=== PATIENT | male | born 1960 | race Caucasian/White ===

== ENCOUNTER 2017-02-21 20:40 | Inpatient (IN) | payer MEDICARE, OTHER ==
[~2017-02-21] VITALS: Ht 182.9 cm; Wt 77.1 kg
[2017-02-21 21:16] LABS: BASO % 1 % (0-3); EOS % 5 % (0-3); HEMOGLOBIN 10.3 g/dL (13.0-17.5); LYMPH # 0.8 x10^3/uL (1.0-4.8); LYMPH % 17 % (24-48); MEAN CORPUSCULAR HEMOGLOBIN 30 pg (25-35); MEAN CORPUSCULAR HGB CONC 33 g/dL (31-37); MEAN CORPUSCULAR VOLUME 89 fL (79-100); MONO % 13 % (0-9); NEUT % 64 % (31-73); PLATELET COUNT 177 x10^3/uL (140-400); RED BLOOD COUNT 3.47 x10^6/uL (4.30-5.70); RED CELL DISTRIBUTION WIDTH 13.3 % (11.5-14.5); WHITE BLOOD COUNT 4.5 x10^3/uL (4.0-11.0)
[2017-02-21 21:20] LABS: BILIRUBIN,URINE NEGATIVE (NEG); GLUCOSE,URINE NEGATIVE (NEG); NITRITE,URINE NEGATIVE (NEG); PROTEIN,URINE NEGATIVE (NEG-TRACE)
[2017-02-21 21:28] LABS: CALCIUM 8.9 mg/dL (8.5-10.1); CREATININE 0.8 mg/dL (0.7-1.3); GFR 99.3; POTASSIUM 3.9 mmol/L (3.5-5.1)
[2017-02-21 21:32] LABS: BACTERIA,URINE FEW /HPF (0-FEW); WBC,URINE 20-40 /HPF (0-4)
[2017-02-21 21:33] LABS: SQUAMOUS EPITHELIAL CELL,UR MANY /LPF; YEAST,URINE PRESENT /HPF
[2017-02-21 21:34] LABS: ALBUMIN 3.7 g/dL (3.4-5.0); TOTAL BILIRUBIN 0.4 mg/dL (0.2-1.0); TOTAL PROTEIN 7.5 g/dL (6.4-8.2)
[2017-02-21] MEDS ORDERED: PIP/TAZO PER PHARMACY MC PRN (23:15)
[2017-02-21] MEDS ORDERED: IV NORMAL SALINE 1000ML BAG 1,000 ML IV ONE (23:45)
[2017-02-21] MEDS ORDERED: PIPERACILLIN/TAZOBACTAM 3.375 GM in IV NORMAL SALINE 50ML 50 ML IV ONE (23:45)
[2017-02-22] MEDS ORDERED: VANCOMYCIN 2 GM in IV NORMAL SALINE 500ML BAG 500 ML IV ONE ×2
[2017-02-22] MEDS: IV NORMAL SALINE 1000ML BAG 1,000 ML IV SCH ×3 (00:25→20:25)
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
[2017-02-22] MEDS ORDERED: MORPHINE SULFATE 2 MG/ML DISP.SYRIN. IV PRN (00:30)
[2017-02-22] MEDS ORDERED: ONDANSETRON PF 4 MG/2 ML VIAL. IV PRN ×2 (00:30→12:24)
[2017-02-22] MEDS ORDERED: ACETAMINOPHEN 325 MG TABLET. PO PRN (00:30)
[2017-02-22 02:50] VITALS: BP 93/55
[2017-02-22] MEDS: VANCOMYCIN PER PHARMACY MC PRN ×2 (02:56→14:56)
[2017-02-22] MEDS ORDERED: CYAN10005 PO (03:00)
[2017-02-22] MEDS ORDERED: CHOL10007 PO (03:00)
[2017-02-22] MEDS ORDERED: IOHEXOL 300 MG/ML 75 ML VIAL IV ONE (03:00)
[2017-02-22] MEDS ORDERED: METF500T4 PO (03:00)
[2017-02-22] MEDS ORDERED: PRAV80TA2 PO (03:00)
[2017-02-22] MEDS ORDERED: VITA400C36 PO (03:00)
[2017-02-22] MEDS ORDERED: ASCO500C PO (03:00)
[2017-02-22] MEDS ORDERED: SULF1TAB3 PO (03:00)
[2017-02-22] MEDS ORDERED: SILV400C TP (03:00)
[2017-02-22] MEDS ORDERED: CONTRAST GIVEN MC PRN (03:00)
[2017-02-22] MEDS ORDERED: FENO160T PO (03:00)
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
[2017-02-22] MEDS: PIPERACILLIN/TAZOBACTAM 3.375 GM in IV NORMAL SALINE 50ML 50 ML IV SCH ×3 (05:29→17:51)
[2017-02-22 07:00] VITALS: BP 94/49
--- NOTE | 2017-02-22 08:35 | RAD ---
Portable chest, 02/21/2017: History: Cough and fever Comparison is made to a study from 12/09/2012. The heart size and pulmonary vascularity are normal. No pulmonary infiltrates are seen. No pleural fluid is evident, although the right lateral costophrenic angle was not completely included on this exam. Old right-sided rib fractures are noted. IMPRESSION: No acute cardiopulmonary abnormality is detected.
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
[2017-02-22 11:00] VITALS: BP 86/47
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
[2017-02-22] MEDS: CHOLECALCIFEROL (VITAMIN D3) 1,000 UNIT TABLET PO SCH (13:00)
[2017-02-22] MEDS: VITAMIN E 200 UNIT CAPSULE. PO SCH (13:00)
[2017-02-22] MEDS: ASCORBIC ACID 500 MG TABLET PO SCH (13:00)
[2017-02-22] MEDS ORDERED: BISACODYL 10 MG SUPP.RECT. PR ONE (13:00)
[2017-02-22] MEDS: CYANOCOBALAMIN (VITAMIN B-12) 1,000 MCG TABLET. PO SCH (13:00)
[2017-02-22] MEDS: FENOFIBRATE,MICRONIZED 134 MG CAPSULE PO SCH (13:00)
[2017-02-22] MEDS: FLUCONAZOLE 100 MG TABLET. PO SCH (14:00)
[2017-02-22] MEDS: silver sulfADIAZINE 1% CREAM 25GM TUBE. TP SCH ×2 (14:00→19:14)
--- NOTE | 2017-02-22 14:07 | PDOC ---
Infectious Disease Note ROS ROS GEN: Denies fevers, chills, sweats HEENT: Denies blurred vision, sore throat CV: Denies chest pain RESP: Denies shortness of air, cough GI: Denies n/v/d NEURO: Denies confusion, dizziness MSK: Denies weakness, joint pain/swelling Vital Sign Vital Signs Vital Signs Date Time Temp Pulse Resp B/P Pulse Ox O2 Delivery O2 Flow Rate FiO2 02/22/17 11:00 98.1 66 18 86/47 93 Room Air 98.1 Physical Exam PHYSICAL EXAM GENERAL: NAD, Alert HEENT: PERRL, OC/OP NECK: Supple, no JVD, no LN LUNGS: Clear HEART: S1S2, no gallop, no murmur ABD: Soft, NT, no organomegaly, no rebound EXT: No edema, no cyanosis [employer]: Alert, oriented x 3, no focal neurologic deficit SKIN: No rash IV: ok Labs Lab Laboratory Tests Test 02/21/17 20:50 02/21/17 20:55 Urine Collection Type Unknown Urine Color Yellow Urine Clarity Hazy Urine pH 6.0 Urine Specific [place] 1.020 Urine Protein Negativemg/dL (NEG-TRACE) Urine Glucose (UA) Negativemg/dL (NEG) Urine Ketones (Stick) Negativemg/dL (NEG) Urine Blood Trace (NEG) Urine Nitrite Negative (NEG) Urine Bilirubin Negative (NEG) Urine Urobilinogen Dipstick 4.0mg/dL (0.2 mg/dL) Urine Leukocyte Esterase Large (NEG) Urine RBC 1-2/HPF (0-2) Urine WBC 20-40/HPF (0-4) Urine Squamous Epithelial Cells Many/LPF Urine Bacteria Few/HPF (0-FEW) Urine Mucus Marked/LPF Urine Yeast Present/HPF White Blood Count 4.5x10^3/uL (4.0-11.0) Red Blood Count 3.47x10^6/uL (4.30-5.70) Hemoglobin 10.3g/dL (13.0-17.5) Hematocrit 31.0% (39.0-53.0) Mean Corpuscular Volume 89fL (79-100) Mean Corpuscular Hemoglobin 30pg (25-35) Mean Corpuscular Hemoglobin Concent 33g/dL (31-37) Red Cell Distribution Width 13.3% (11.5-14.5) Platelet Count 177x10^3/uL (140-400) Neutrophils (%) (Auto) 64% (31-73) Lymphocytes (%) (Auto) 17% (24-48) Monocytes (%) (Auto) 13% (0-9) Eosinophils (%) (Auto) 5% (0-3) Basophils (%) (Auto) 1% (0-3) Neutrophils # (Auto) 2.9x10^3uL (1.8-7.7) Lymphocytes # (Auto) 0.8x10^3/uL (1.0-4.8) Monocytes # (Auto) 0.6x10^3/uL (0.0-1.1) Eosinophils # (Auto) 0.2x10^3/uL (0.0-0.7) Basophils # (Auto) 0.0x10^3/uL (0.0-0.2) Sodium Level 136mmol/L (136-145) Potassium Level 3.9mmol/L (3.5-5.1) Chloride Level 99mmol/L (98-107) Carbon Dioxide Level 26mmol/L (21-32) Anion Gap 11 (6-14) Blood Urea Nitrogen 16mg/dL (8-26) Creatinine 0.8mg/dL (0.7-1.3) Estimated GFR (Cockcroft-Gault) 99.3 BUN/Creatinine Ratio 20 (6-20) Glucose Level 103mg/dL (70-99) Lactic Acid Level 1.6mmol/L (0.4-2.0) Calcium Level 8.9mg/dL (8.5-10.1) Total Bilirubin 0.4mg/dL (0.2-1.0) Aspartate Amino Transf (AST/SGOT) 18U/L (15-37) Alanine Aminotransferase (ALT/SGPT) 17U/L (16-63) Alkaline Phosphatase 61U/L (46-116) Total Protein 7.5g/dL (6.4-8.2) Albumin 3.7g/dL (3.4-5.0) Albumin/Globulin Ratio 1.0 (1.0-1.7) Objective Assessment Fever at home Draining left hip wound Right 2 nd toe wound UTI - POA yeast also Plan Plan of Care Cult left hip wound F/u Urine cults MRI left hip Xray of right foot for 2 nd toe Cont Vanc/zosyn Add Fluconzole Change fortune in am May need Ortho eval Thank you # [id number] LOREE TELLEZ MD Feb 22, 2017 14:07
[2017-02-22] MEDS: ENOXAPARIN 40 MG/0.4 ML SYRINGE. SQ SCH (14:13)
--- NOTE | 2017-02-22 14:54 | PDOC2 ---
CONSULT Date of Consult Date of Consult DATE: 02/22/17 TIME: 14:52 Reason for Consult Reason for Consult: Constipation/quadriplegia/abnl Ct scan Past Medical History Cardiovascular: Hyperlipidemia Infectious disease: Other (uti's) Past Surgical History Past Surgical History: Other (suprapubic cath ) Family History Family History: No Significant Social History No ALCOHOL: none Drugs: None Current Problem List Problem List Problems Medical Problems: (1) Fever Status: Acute (2) Paraplegia Status: Acute (3) Wound drainage Status: Acute Current Medications Current Medications Current Medications Sodium Chloride (Iv Sodium Chloride 0.9% 1000ml Bag) 1,000 ml @ 1,000 mls/hr 1X ONCE IV Last administered on 02/21/17 23:44; Start 02/21/17 at 23:45; Stop 02/22/17 at 00:44; Status DC Vancomycin HCl (Vanco Per Pharmacy) 1 each PRN DAILY PRN MC SEE COMMENTS Last administered on 02/22/17 02:56; Start 02/21/17 at 23:15 Piperacillin Sod/ Tazobactam Sod 1 each 1 each PRN DAILY PRN MC SEE COMMENTS; Start 02/21/17 at 23:15 Vancomycin HCl 2 gm/Sodium Chloride 500 ml @ 250 mls/hr 1X ONCE IV Last administered on 02/22/17 01:25; Start 02/22/17 at 00:00; Stop 02/22/17 at 01:59 ; Status DC Piperacillin Sod/ Tazobactam Sod/ Sodium Chloride (Zosyn/Iv Sodium Chloride 0.9 % 50ml) 50 ml @ 100 mls/hr 1X ONCE IV Last administered on 02/21/17 23:45; Start 02/21/17 at 23:45; Stop 02/22/17 at 00:14; Status DC Ondansetron HCl (Zofran) 4 mg PRN Q8HRS PRN IV NAUSEA/VOMITING; Start 02/22/17 at 00:30; Stop 02/22/17 at 12:33; Status DC Morphine Sulfate 2 mg 2 mg PRN Q2HR PRN IV SEVERE PAIN; Start 02/22/17 at 00:30 ; Stop 02/23/17 at 00:29 Sodium Chloride (Iv Sodium Chloride 0.9% 1000ml Bag) 1,000 ml @ 100 mls/hr Q10H IV Last administered on 02/22/17 00:25; Start 02/22/17 at 00:25; Stop at 00:24 Acetaminophen 650 mg 650 mg PRN Q4HRS PRN PO FEVER; Start 02/22/17 at 00:30; Stop 02/23/17 at 00:29 Piperacillin Sod/ Tazobactam Sod 3.375 gm/Sodium Chloride 50 ml @ 100 mls/hr Q6HRS IV Last administered on 02/22/17 14:01; Start 02/22/17 at 06:00 Vancomycin HCl/ Sodium Chloride (Iv Sodium Chloride 0.9% 250ml) 250 ml @ 250 mls/hr Q8H IV ; Start 02/22/17 at 09:00 Vancomycin HCl 1 each 1X ONCE MC ; Start 02/23/17 at 00:30; Stop 02/23/17 at 00 :31 Iohexol (Omnipaque 300 Mg/ml) 75 ml 1X ONCE IV Last administered on 02/22/17 03:07; Start 02/22/17 at 03:00; Stop 02/22/17 at 03:01; Status DC Info (Do NOT chart on this entry -- for MONITORING) 1 each PRN DAILY PRN MC SEE COMMENTS; Start 02/22/17 at 03:00; Stop 02/24/17 at 02:59 Ondansetron HCl (Zofran) 4 mg PRN Q6HRS PRN IV NAUSEA/VOMITING; Start 02/22/17 at 12:24 Cyanocobalamin (Vitamin B-12) 1,000 mcg DAILY PO ; Start 02/22/17 at 13:00 Metformin HCl (Glucophage) 500 mg BIDWMEALS PO ; Start 02/24/17 at 08:00 Silver Sulfadiazine (Silvadene) 1 lydia TID TP ; Start 02/22/17 at 14:00 Ascorbic Acid (Vitamin C) 500 mg DAILY PO ; Start 02/22/17 at 13:00 Vitamin D (Vitamin D3) 1,000 unit DAILY PO ; Start 02/22/17 at 13:00 Fenofibrate (Lofibra) 134 mg DAILY PO ; Start 02/22/17 at 13:00 Atorvastatin Calcium (Lipitor) 20 mg QHS PO ; Start 02/22/17 at 21:00 Vitamin E 400 unit DAILY PO ; Start 02/22/17 at 13:00 Bisacodyl (Dulcolax Supp) 10 mg 1X ONCE DC Last administered on 02/22/17 14: 14; Start 02/22/17 at 13:00; Stop 02/22/17 at 13:01; Status DC Enoxaparin Sodium (Lovenox 40mg Syringe) 40 mg Q24H SQ Last administered on t 14:13; Start 02/22/17 at 13:00 Fluconazole (Diflucan) 200 mg DAILY PO ; Start 02/22/17 at 14:00 Active Scripts Active Reported Vitamin E (Vitamin E Mixed) 400 Unit Capsule 400 Unit PO DAILY Vitamin D3 (Cholecalciferol (Vitamin D3)) 1,000 Unit Capsule 1,000 Unit PO DAILY Vitamin B-12 (Cyanocobalamin (Vitamin B-12)) 1,000 Mcg Tablet 1 Tab PO DAILY Vitamin C (Ascorbic Acid) 500 Mg Capsule.er 500 Mg PO DAILY Sulfamethoxazole-Tmp Ds Tablet (Sulfamethoxazole/Trimethoprim) 1 Each Tablet 1 Tab PO DAILY Silver Sulfadiazine 400 Gm Cream..g. 1 Lydia TP TID Fenofibrate 160 Mg Tablet 160 Mg PO DAILY Pravastatin Sodium 80 Mg Tablet 80 Mg PO DAILY Metformin Hcl 500 Mg Tablet 500 Mg PO BID Allergies Allergies: Coded Allergies: pentoxifylline (Verified Allergy, Intermediate, 02/21/17) Vitals VITALS Vital Signs Date Time Temp Pulse Resp B/P Pulse Ox O2 Delivery O2 Flow Rate FiO2 02/22/17 11:00 98.1 66 18 86/47 93 Room Air 98.1 Labs Labs Laboratory Tests Test 02/21/17 20:50 02/21/17 20:55 Urine Collection Type Unknown Urine Color Yellow Urine Clarity Hazy Urine pH 6.0 Urine Specific [place] 1.020 Urine Protein Negativemg/dL (NEG-TRACE) Urine Glucose (UA) Negativemg/dL (NEG) Urine Ketones (Stick) Negativemg/dL (NEG) Urine Blood Trace (NEG) Urine Nitrite Negative (NEG) Urine Bilirubin Negative (NEG) Urine Urobilinogen Dipstick 4.0mg/dL (0.2 mg/dL) Urine Leukocyte Esterase Large (NEG) Urine RBC 1-2/HPF (0-2) Urine WBC 20-40/HPF (0-4) Urine Squamous Epithelial Cells Many/LPF Urine Bacteria Few/HPF (0-FEW) Urine Mucus Marked/LPF Urine Yeast Present/HPF White Blood Count 4.5x10^3/uL (4.0-11.0) Red Blood Count 3.47x10^6/uL (4.30-5.70) Hemoglobin 10.3g/dL (13.0-17.5) Hematocrit 31.0% (39.0-53.0) Mean Corpuscular Volume 89fL (79-100) Mean Corpuscular Hemoglobin 30pg (25-35) Mean Corpuscular Hemoglobin Concent 33g/dL (31-37) Red Cell Distribution Width 13.3% (11.5-14.5) Platelet Count 177x10^3/uL (140-400) Neutrophils (%) (Auto) 64% (31-73) Lymphocytes (%) (Auto) 17% (24-48) Monocytes (%) (Auto) 13% (0-9) Eosinophils (%) (Auto) 5% (0-3) Basophils (%) (Auto) 1% (0-3) Neutrophils # (Auto) 2.9x10^3uL (1.8-7.7) Lymphocytes # (Auto) 0.8x10^3/uL (1.0-4.8) Monocytes # (Auto) 0.6x10^3/uL (0.0-1.1) Eosinophils # (Auto) 0.2x10^3/uL (0.0-0.7) Basophils # (Auto) 0.0x10^3/uL (0.0-0.2) Sodium Level 136mmol/L (136-145) Potassium Level 3.9mmol/L (3.5-5.1) Chloride Level 99mmol/L (98-107) Carbon Dioxide Level 26mmol/L (21-32) Anion Gap 11 (6-14) Blood Urea Nitrogen 16mg/dL (8-26) Creatinine 0.8mg/dL (0.7-1.3) Estimated GFR (Cockcroft-Gault) 99.3 BUN/Creatinine Ratio 20 (6-20) Glucose Level 103mg/dL (70-99) Lactic Acid Level 1.6mmol/L (0.4-2.0) Calcium Level 8.9mg/dL (8.5-10.1) Total Bilirubin 0.4mg/dL (0.2-1.0) Aspartate Amino Transf (AST/SGOT) 18U/L (15-37) Alanine Aminotransferase (ALT/SGPT) 17U/L (16-63) Alkaline Phosphatase 61U/L (46-116) Total Protein 7.5g/dL (6.4-8.2) Albumin 3.7g/dL (3.4-5.0) Albumin/Globulin Ratio 1.0 (1.0-1.7) Laboratory Tests Test 02/21/17 20:50 02/21/17 20:55 Urine Collection Type Unknown Urine Color Yellow Urine Clarity Hazy Urine pH 6.0 Urine Specific [place] 1.020 Urine Protein Negativemg/dL (NEG-TRACE) Urine Glucose (UA) Negativemg/dL (NEG) Urine Ketones (Stick) Negativemg/dL (NEG) Urine Blood Trace (NEG) Urine Nitrite Negative (NEG) Urine Bilirubin Negative (NEG) Urine Urobilinogen Dipstick 4.0mg/dL (0.2 mg/dL) Urine Leukocyte Esterase Large (NEG) Urine RBC 1-2/HPF (0-2) Urine WBC 20-40/HPF (0-4) Urine Squamous Epithelial Cells Many/LPF Urine Bacteria Few/HPF (0-FEW) Urine Mucus Marked/LPF Urine Yeast Present/HPF White Blood Count 4.5x10^3/uL (4.0-11.0) Red Blood Count 3.47x10^6/uL (4.30-5.70) Hemoglobin 10.3g/dL (13.0-17.5) Hematocrit 31.0% (39.0-53.0) Mean Corpuscular Volume 89fL (79-100) Mean Corpuscular Hemoglobin 30pg (25-35) Mean Corpuscular Hemoglobin Concent 33g/dL (31-37) Red Cell Distribution Width 13.3% (11.5-14.5) Platelet Count 177x10^3/uL (140-400) Neutrophils (%) (Auto) 64% (31-73) Lymphocytes (%) (Auto) 17% (24-48) Monocytes (%) (Auto) 13% (0-9) Eosinophils (%) (Auto) 5% (0-3) Basophils (%) (Auto) 1% (0-3) Neutrophils # (Auto) 2.9x10^3uL (1.8-7.7) Lymphocytes # (Auto) 0.8x10^3/uL (1.0-4.8) Monocytes # (Auto) 0.6x10^3/uL (0.0-1.1) Eosinophils # (Auto) 0.2x10^3/uL (0.0-0.7) Basophils # (Auto) 0.0x10^3/uL (0.0-0.2) Sodium Level 136mmol/L (136-145) Potassium Level 3.9mmol/L (3.5-5.1) Chloride Level 99mmol/L (98-107) Carbon Dioxide Level 26mmol/L (21-32) Anion Gap 11 (6-14) Blood Urea Nitrogen 16mg/dL (8-26) Creatinine 0.8mg/dL (0.7-1.3) Estimated GFR (Cockcroft-Gault) 99.3 BUN/Creatinine Ratio 20 (6-20) Glucose Level 103mg/dL (70-99) Lactic Acid Level 1.6mmol/L (0.4-2.0) Calcium Level 8.9mg/dL (8.5-10.1) Total Bilirubin 0.4mg/dL (0.2-1.0) Aspartate Amino Transf (AST/SGOT) 18U/L (15-37) Alanine Aminotransferase (ALT/SGPT) 17U/L (16-63) Alkaline Phosphatase 61U/L (46-116) Total Protein 7.5g/dL (6.4-8.2) Albumin 3.7g/dL (3.4-5.0) Albumin/Globulin Ratio 1.0 (1.0-1.7) Assessment/Plan Assessment/Plan Constipation- with neurologic dysfunction/bowel regimen/Abnl ct scan. Most likely multifactorial in etiology. Diverticular stricture, ischemic colitis, IBD , colon cancer, and/or image artifat in differential Plan await MRI hip r/o osteomyelitis patient to consider colonoscopy Full note dictated BRITTANIE LEW MD Feb 22, 2017 14:54
[2017-02-22] MEDS: VANCOMYCIN 1 GM in IV NORMAL SALINE 250ML 250 ML IV SCH ×2 (14:59→19:22)
[2017-02-22 15:00] VITALS: BP 97/56
--- NOTE | 2017-02-22 15:13 | RAD ---
Indication wound second digit. AP and lateral views of the right foot were obtained. There is slight soft tissue swelling of the second toe. Plain film findings of osteomyelitis are not seen. Acute finding is not apparent. Mild degenerative changes are noted predominantly involving the first metatarsal phalangeal joint. IMPRESSION: No acute finding
[2017-02-22] MEDS ORDERED: GADOBUTROL 10 MMOL/10 ML VIAL IV ONE (16:45)
--- NOTE | 2017-02-22 18:17 | RAD ---
PROCEDURE MRI study of the left hip with and without contrast HISTORY Left hip ulcer for 1 month. Possible osteomyelitis. TECHNIQUE Pre and post contrast enhanced MRI sequences of the left hip were performed. A total of 8 cc of Gadavist was given intravenously. COMPARISON No previous MRI available. FINDINGS There is a soft tissue wound of the lateral aspect of the left hip area which extends from the skin surface to the greater trochanter. There is underlying T1 marrow signal abnormality and cortical erosion of the greater trochanter consistent with osteomyelitis. There is associated bone marrow edema and enhancement here as well. The bone marrow edema and enhancement involves the entire greater trochanter. No fracture is seen. There is a small fluid collection within the greater trochanteric bursa with enhancement. This fluid collection measures 5.3 centimeters in AP dimension and 5.1 centimeters in vertical dimension but only 0.9 centimeters in thickness. This fluid collection connects to the skin surface via a sinus tract. Therefore, this may represent a decompressed greater trochanteric bursa. Infection of this area is suspected given the sinus tract to the skin surface and the adjacent greater trochanteric osteomyelitis. There is an area of soft tissue thickening with enhancement in this area which involves the subcutaneous soft tissues and the adjacent gluteus muscles mainly the gluteus luisa muscle. This area measures 8.9 centimeters in AP dimension and 4.9 centimeters in transverse dimension and 7.7 centimeters in vertical dimension. This is consistent with soft tissue infection or soft tissue breakdown from pressure here. There is generalized fatty atrophy of the muscle groups around the left hip. IMPRESSION Lateral left hip ulceration with associated greater trochanteric bursitis and greater trochanteric osteomyelitis. Electronically signed by: Luis Daniel Hubbard MD (Feb 22, 2017 18:15:58)
[2017-02-22] MEDS: ATORVASTATIN CALCIUM 20 MG TABLET PO SCH (19:14)
[2017-02-22 19:58] VITALS: BP 98/54
[2017-02-22 23:06] VITALS: BP 104/51
[2017-02-23] VITALS (12 sets, daily range): BP systolic 81–106; BP diastolic 38–63
[2017-02-23] MEDS: PIPERACILLIN/TAZOBACTAM 3.375 GM in IV NORMAL SALINE 50ML 50 ML IV SCH ×5 (00:03→23:54)
[2017-02-23 01:18] LABS: BASO % 1 % (0-3); EOS % 3 % (0-3); HEMATOCRIT 30.5 % (39.0-53.0); HEMOGLOBIN 10.1 g/dL (13.0-17.5); LYMPH % 19 % (24-48); MEAN CORPUSCULAR HEMOGLOBIN 30 pg (25-35); MEAN CORPUSCULAR HGB CONC 33 g/dL (31-37); MEAN CORPUSCULAR VOLUME 91 fL (79-100); MONO % 13 % (0-9); NEUT % 64 % (31-73); PLATELET COUNT 165 x10^3/uL (140-400); RED BLOOD COUNT 3.36 x10^6/uL (4.30-5.70); RED CELL DISTRIBUTION WIDTH 13.6 % (11.5-14.5); WHITE BLOOD COUNT 5.2 x10^3/uL (4.0-11.0)
[2017-02-23] MEDS: VANCOMYCIN 1 GM in IV NORMAL SALINE 250ML 250 ML IV SCH ×3 (01:42→18:26)
[2017-02-23] MEDS: VANCOMYCIN PER PHARMACY MC PRN ×2 (01:56→01:57)
[2017-02-23 05:42] LABS: CALCIUM 8.1 mg/dL (8.5-10.1); CREATININE 0.7 mg/dL (0.7-1.3); GFR 115.8; POTASSIUM 3.7 mmol/L (3.5-5.1)
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
--- NOTE | 2017-02-23 08:36 | RAD ---
Indication ileus. Supine films of the abdomen were obtained. The abdominal gas pattern is grossly normal. High-grade mechanical obstruction is not seen on the single view submitted. There are bladder calculi. Chronic musculoskeletal deformity at the thoracolumbar junction is noted. Chronic changes in the pelvis are additionally noted. IMPRESSION: The abdominal gas pattern appears grossly normal. Acute finding is not seen on plain films of the abdomen
[2017-02-23] MEDS: CYANOCOBALAMIN (VITAMIN B-12) 1,000 MCG TABLET. PO SCH (09:00)
[2017-02-23] MEDS: ASCORBIC ACID 500 MG TABLET PO SCH (09:00)
[2017-02-23] MEDS: VITAMIN E 200 UNIT CAPSULE. PO SCH (09:00)
[2017-02-23] MEDS: silver sulfADIAZINE 1% CREAM 25GM TUBE. TP SCH ×3 (09:00→19:50)
[2017-02-23] MEDS: FENOFIBRATE,MICRONIZED 134 MG CAPSULE PO SCH (09:00)
[2017-02-23] MEDS: FLUCONAZOLE 100 MG TABLET. PO SCH (09:00)
[2017-02-23] MEDS: CHOLECALCIFEROL (VITAMIN D3) 1,000 UNIT TABLET PO SCH (09:00)
--- NOTE | 2017-02-23 09:32 | PDOC ---
Infectious Disease Note Subjective Subjective Doing ok. Starving ROS ROS GEN: Denies fevers, chills, sweats HEENT: Denies blurred vision, sore throat CV: Denies chest pain RESP: Denies shortness of air, cough GI: Denies n/v/d NEURO: Denies confusion, dizziness Vital Sign Vital Signs Vital Signs Date Time Temp Pulse Resp B/P Pulse Ox O2 Delivery O2 Flow Rate FiO2 02/23/17 07:15 97.4 63 20 94/51 94 Room Air 97.4 Physical Exam PHYSICAL EXAM GENERAL: NAD, Alert HEENT: PERRL, OC/OP- clear NECK: Supple, no JVD, no LN LUNGS: Clear HEART: S1S2, no gallop, no murmur ABD: Soft, NT, no organomegaly, no rebound, less distension Suprapubic EXT: No edema, no cyanosis. Wound dressed [employer]: Alert, oriented x 3 SKIN: No rash IV: ok Labs Lab Laboratory Tests Test 02/22/17 13:45 02/23/17 00:50 02/23/17 01:00 Erythrocyte Sedimentation Rate 39 (0-15) Sodium Level 142mmol/L (136-145) Potassium Level 3.7mmol/L (3.5-5.1) Chloride Level 105mmol/L (98-107) Carbon Dioxide Level 19mmol/L (21-32) Anion Gap 18 (6-14) Blood Urea Nitrogen 11mg/dL (8-26) Creatinine 0.7mg/dL (0.7-1.3) Estimated GFR (Cockcroft-Gault) 115.8 Glucose Level 60mg/dL (70-99) Calcium Level 8.1mg/dL (8.5-10.1) White Blood Count 5.2x10^3/uL (4.0-11.0) Red Blood Count 3.36x10^6/uL (4.30-5.70) Hemoglobin 10.1g/dL (13.0-17.5) Hematocrit 30.5% (39.0-53.0) Mean Corpuscular Volume 91fL (79-100) Mean Corpuscular Hemoglobin 30pg (25-35) Mean Corpuscular Hemoglobin Concent 33g/dL (31-37) Red Cell Distribution Width 13.6% (11.5-14.5) Platelet Count 165x10^3/uL (140-400) Neutrophils (%) (Auto) 64% (31-73) Lymphocytes (%) (Auto) 19% (24-48) Monocytes (%) (Auto) 13% (0-9) Eosinophils (%) (Auto) 3% (0-3) Basophils (%) (Auto) 1% (0-3) Neutrophils # (Auto) 3.3x10^3uL (1.8-7.7) Lymphocytes # (Auto) 1.0x10^3/uL (1.0-4.8) Monocytes # (Auto) 0.7x10^3/uL (0.0-1.1) Eosinophils # (Auto) 0.2x10^3/uL (0.0-0.7) Basophils # (Auto) 0.0x10^3/uL (0.0-0.2) Vancomycin Level Trough 20.0mcg/mL (10.0-20.0) Vancomycin Last Dose Date [id number] Vancomycin Last Dose Time 1700 Objective Assessment Fever at home Draining left hip wound. MRI + draining wound/bursitis/osteo Right 2 nd toe wound -XRAY -neg UTI - POA yeast also Ileus - improved on KUB. 4 stools per nursing Plan Plan of Care F/u cult left hip wound Consult Dr. Martins - Alicia for ? I and D F/u Urine cults F/u labs Cont Vanc/zosynFluconzole Change fortune once cults ID May need Ortho LOREE Baugh MD Feb 23, 2017 09:32
--- NOTE | 2017-02-23 10:00 | PDOC ---
YEIMI VALE [employer] 02/23/17 1000: SURGICAL PROGRESS NOTE Subjective had a stool, would like to eat now Vital Signs Vital Signs Date Time Temp Pulse Resp B/P Pulse Ox O2 Delivery O2 Flow Rate FiO2 02/23/17 07:15 97.4 63 20 94/51 94 Room Air 97.4 I&O Intake and Output 02/23/17 07:00 Intake Total 0 ml Output Total 2000 ml Balance -2000 ml Intake Oral 0 ml Output Urine Total 2000 ml # Bowel Movements 2 General: Alert, Oriented X3, Cooperative Abdomen: Soft, Other (ND) Labs Laboratory Tests Test 02/21/17 20:50 02/21/17 20:55 02/22/17 13:45 02/23/17 00:50 Urine Collection Type Unknown Urine Color Yellow Urine Clarity Hazy Urine pH 6.0 Urine Specific [place] 1.020 Urine Protein Negativemg/dL (NEG-TRACE) Urine Glucose (UA) Negativemg/dL (NEG) Urine Ketones (Stick) Negativemg/dL (NEG) Urine Blood Trace (NEG) Urine Nitrite Negative (NEG) Urine Bilirubin Negative (NEG) Urine Urobilinogen Dipstick 4.0mg/dL (0.2 mg/dL) Urine Leukocyte Esterase Large (NEG) Urine RBC 1-2/HPF (0-2) Urine WBC 20-40/HPF (0-4) Urine Squamous Epithelial Cells Many/LPF Urine Bacteria Few/HPF (0-FEW) Urine Mucus Marked/LPF Urine Yeast Present/HPF White Blood Count 4.5x10^3/uL (4.0-11.0) Red Blood Count 3.47x10^6/uL (4.30-5.70) Hemoglobin 10.3g/dL (13.0-17.5) Hematocrit 31.0% (39.0-53.0) Mean Corpuscular Volume 89fL (79-100) Mean Corpuscular Hemoglobin 30pg (25-35) Mean Corpuscular Hemoglobin Concent 33g/dL (31-37) Red Cell Distribution Width 13.3% (11.5-14.5) Platelet Count 177x10^3/uL (140-400) Neutrophils (%) (Auto) 64% (31-73) Lymphocytes (%) (Auto) 17% (24-48) Monocytes (%) (Auto) 13% (0-9) Eosinophils (%) (Auto) 5% (0-3) Basophils (%) (Auto) 1% (0-3) Neutrophils # (Auto) 2.9x10^3uL (1.8-7.7) Lymphocytes # (Auto) 0.8x10^3/uL (1.0-4.8) Monocytes # (Auto) 0.6x10^3/uL (0.0-1.1) Eosinophils # (Auto) 0.2x10^3/uL (0.0-0.7) Basophils # (Auto) 0.0x10^3/uL (0.0-0.2) Sodium Level 136mmol/L (136-145) 142mmol/L (136-145) Potassium Level 3.9mmol/L (3.5-5.1) 3.7mmol/L (3.5-5.1) Chloride Level 99mmol/L (98-107) 105mmol/L (98-107) Carbon Dioxide Level 26mmol/L (21-32) 19mmol/L (21-32) Anion Gap 11 (6-14) 18 (6-14) Blood Urea Nitrogen 16mg/dL (8-26) 11mg/dL (8-26) Creatinine 0.8mg/dL (0.7-1.3) 0.7mg/dL (0.7-1.3) Estimated GFR (Cockcroft-Gault) 99.3 115.8 BUN/Creatinine Ratio 20 (6-20) Glucose Level 103mg/dL (70-99) 60mg/dL (70-99) Lactic Acid Level 1.6mmol/L (0.4-2.0) Calcium Level 8.9mg/dL (8.5-10.1) 8.1mg/dL (8.5-10.1) Total Bilirubin 0.4mg/dL (0.2-1.0) Aspartate Amino Transf (AST/SGOT) 18U/L (15-37) Alanine Aminotransferase (ALT/SGPT) 17U/L (16-63) Alkaline Phosphatase 61U/L (46-116) Total Protein 7.5g/dL (6.4-8.2) Albumin 3.7g/dL (3.4-5.0) Albumin/Globulin Ratio 1.0 (1.0-1.7) Erythrocyte Sedimentation Rate 39 (0-15) Test 02/23/17 01:00 White Blood Count 5.2x10^3/uL (4.0-11.0) Red Blood Count 3.36x10^6/uL (4.30-5.70) Hemoglobin 10.1g/dL (13.0-17.5) Hematocrit 30.5% (39.0-53.0) Mean Corpuscular Volume 91fL (79-100) Mean Corpuscular Hemoglobin 30pg (25-35) Mean Corpuscular Hemoglobin Concent 33g/dL (31-37) Red Cell Distribution Width 13.6% (11.5-14.5) Platelet Count 165x10^3/uL (140-400) Neutrophils (%) (Auto) 64% (31-73) Lymphocytes (%) (Auto) 19% (24-48) Monocytes (%) (Auto) 13% (0-9) Eosinophils (%) (Auto) 3% (0-3) Basophils (%) (Auto) 1% (0-3) Neutrophils # (Auto) 3.3x10^3uL (1.8-7.7) Lymphocytes # (Auto) 1.0x10^3/uL (1.0-4.8) Monocytes # (Auto) 0.7x10^3/uL (0.0-1.1) Eosinophils # (Auto) 0.2x10^3/uL (0.0-0.7) Basophils # (Auto) 0.0x10^3/uL (0.0-0.2) Vancomycin Level Trough 20.0mcg/mL (10.0-20.0) Vancomycin Last Dose Date [id number] Vancomycin Last Dose Time 1700 Laboratory Tests Test 02/22/17 13:45 02/23/17 00:50 02/23/17 01:00 Erythrocyte Sedimentation Rate 39 (0-15) Sodium Level 142mmol/L (136-145) Potassium Level 3.7mmol/L (3.5-5.1) Chloride Level 105mmol/L (98-107) Carbon Dioxide Level 19mmol/L (21-32) Anion Gap 18 (6-14) Blood Urea Nitrogen 11mg/dL (8-26) Creatinine 0.7mg/dL (0.7-1.3) Estimated GFR (Cockcroft-Gault) 115.8 Glucose Level 60mg/dL (70-99) Calcium Level 8.1mg/dL (8.5-10.1) White Blood Count 5.2x10^3/uL (4.0-11.0) Red Blood Count 3.36x10^6/uL (4.30-5.70) Hemoglobin 10.1g/dL (13.0-17.5) Hematocrit 30.5% (39.0-53.0) Mean Corpuscular Volume 91fL (79-100) Mean Corpuscular Hemoglobin 30pg (25-35) Mean Corpuscular Hemoglobin Concent 33g/dL (31-37) Red Cell Distribution Width 13.6% (11.5-14.5) Platelet Count 165x10^3/uL (140-400) Neutrophils (%) (Auto) 64% (31-73) Lymphocytes (%) (Auto) 19% (24-48) Monocytes (%) (Auto) 13% (0-9) Eosinophils (%) (Auto) 3% (0-3) Basophils (%) (Auto) 1% (0-3) Neutrophils # (Auto) 3.3x10^3uL (1.8-7.7) Lymphocytes # (Auto) 1.0x10^3/uL (1.0-4.8) Monocytes # (Auto) 0.7x10^3/uL (0.0-1.1) Eosinophils # (Auto) 0.2x10^3/uL (0.0-0.7) Basophils # (Auto) 0.0x10^3/uL (0.0-0.2) Vancomycin Level Trough 20.0mcg/mL (10.0-20.0) Vancomycin Last Dose Date [id number] Vancomycin Last Dose Time 1700 Problem List Problems Medical Problems: (1) Fever Status: Acute (2) Paraplegia Status: Acute (3) Wound drainage Status: Acute Assessment/Plan constipation, colonic ileus, had stool, defer recs colonoscopy to GI osteomyelitis to hip-ortho consulted will follow Problems: FAN BRANTLEY MD 02/23/17 3767: SURGICAL PROGRESS NOTE Assessment/Plan Pt seen and examined. Agree with Ms. Vale's note Pt without c/o abd soft cont w/u per GI debridement per ortho today Problems: YEIMI VALE [employer] Feb 23, 2017 10:00 FAN BRANTLEY MD Feb 23, 2017 13:57
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
[2017-02-23] MEDS: ENOXAPARIN 40 MG/0.4 ML SYRINGE. SQ SCH (13:00)
[2017-02-23] MEDS ORDERED: IV RINGERS,LACTATED 1000ML 1,000 ML IV SCH (13:32)
[2017-02-23] MEDS ORDERED: BUPIVACAINE MPF 0.5% 30 ML VIAL. ONE (13:35)
[2017-02-23] MEDS ORDERED: LIDOCAINE 1% PF 30 ML VIAL. ONE (13:35)
[2017-02-23] MEDS ORDERED: FENTANYL PF 100 MCG/2 ML VIAL. IV PRN ×2 (13:45)
[2017-02-23] MEDS ORDERED: LIDOCAINE 1% 1 ML SYRINGE. ID PRN (13:45)
[2017-02-23] MEDS ORDERED: PROCHLORPERAZINE 10 MG/2 ML VIAL. IV PRN (13:45)
[2017-02-23] MEDS ORDERED: HYDROmorphone 2 MG/ML VIAL IV PRN (13:45)
[2017-02-23] MEDS ORDERED: MORPHINE SULFATE 2 MG/ML DISP.SYRIN. IV PRN (13:45)
--- NOTE | 2017-02-23 14:23 | PDOC ---
Subjective: Subjective: Feeling better. +flatus +stools Denies abd pain. Objective: Objective: Per RN - to OR this afternoon w/ ortho, had stools. Vital Signs: Vital Signs Date Time Temp Pulse Resp B/P Pulse Ox O2 Delivery O2 Flow Rate FiO2 02/23/17 11:01 97.5 70 24 106/61 95 Room Air 97.5 Labs: Laboratory Tests Test 02/23/17 00:50 02/23/17 01:00 Sodium Level 142mmol/L Potassium Level 3.7mmol/L Chloride Level 105mmol/L Carbon Dioxide Level 19mmol/L Anion Gap 18 Blood Urea Nitrogen 11mg/dL Creatinine 0.7mg/dL Estimated GFR (Cockcroft-Gault) 115.8 Glucose Level 60mg/dL Calcium Level 8.1mg/dL White Blood Count 5.2x10^3/uL Red Blood Count 3.36x10^6/uL Hemoglobin 10.1g/dL Hematocrit 30.5% Mean Corpuscular Volume 91fL Mean Corpuscular Hemoglobin 30pg Mean Corpuscular Hemoglobin Concent 33g/dL Red Cell Distribution Width 13.6% Platelet Count 165x10^3/uL Neutrophils (%) (Auto) 64% Lymphocytes (%) (Auto) 19% Monocytes (%) (Auto) 13% Eosinophils (%) (Auto) 3% Basophils (%) (Auto) 1% Neutrophils # (Auto) 3.3x10^3uL Lymphocytes # (Auto) 1.0x10^3/uL Monocytes # (Auto) 0.7x10^3/uL Eosinophils # (Auto) 0.2x10^3/uL Basophils # (Auto) 0.0x10^3/uL Vancomycin Level Trough 20.0mcg/mL Vancomycin Last Dose Date [id number] Vancomycin Last Dose Time 1700 Imaging: KUB 02/23/17 IMPRESSION: The abdominal gas pattern appears grossly normal. Acute finding is not seen on plain films of the abdomen. PE: GEN: NAD LUNGS: CTAB HEART: RRR ABD: BS+, S/ND/NT NEURO/PSYCH: A & O 3 A/P: Constipation, ileus - resolved -considering colonoscopy, no previous Hip wound -ortho and ID following -- Improved GI-meneses, to have I&D today. FERN CONCEPCION Feb 23, 2017 14:23
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
--- NOTE | 2017-02-23 16:22 | PDOC ---
BRIEF OPERATIVE NOTE Date: Feb 23, 2017 Pre-Op Diagnosis L hip wound with osteomyelitis Post-Op Diagnosis same Procedure Performed I and D L hip wound, bone biopsy, application of wound VAC Surgeon Lakshmi Anesthesiologist Lucy Anesthesia Type: Regional Blood Loss 25mL Specimens Obtained swabs and bone for Cx Complications none MATHEW GONZALES II, MD Feb 23, 2017 16:21
[2017-02-23] MEDS: ATORVASTATIN CALCIUM 20 MG TABLET PO SCH (20:26)
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
[2017-02-24] MEDS ORDERED: IV NORMAL SALINE 1000ML BAG 1,000 ML IV SCH (00:30)
[2017-02-24] MEDS: VANCOMYCIN 1 GM in IV NORMAL SALINE 250ML 250 ML IV SCH ×3 (00:52→19:16)
[2017-02-24 03:23] VITALS: BP 130/74
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
[2017-02-24] MEDS: PIPERACILLIN/TAZOBACTAM 3.375 GM in IV NORMAL SALINE 50ML 50 ML IV SCH ×3 (05:25→20:41)
[2017-02-24 07:00] VITALS: BP 122/68
--- NOTE | 2017-02-24 08:11 | PDOC ---
Infectious Disease Note Subjective Subjective Doing ok. Starving ROS ROS GEN: Denies fevers, chills, sweats HEENT: Denies blurred vision, sore throat CV: Denies chest pain RESP: Denies shortness of air, cough GI: Denies n/v/d NEURO: Denies confusion, dizziness MSK: Denies weakness, joint pain/swelling Vital Sign Vital Signs Vital Signs Date Time Temp Pulse Resp B/P Pulse Ox O2 Delivery O2 Flow Rate FiO2 02/24/17 07:00 96.8 69 18 122/68 92 Room Air 96.8 Physical Exam PHYSICAL EXAM GENERAL: NAD, Alert, sitting up HEENT: PERRL, OC/OP- clear NECK: Supple, no JVD, no LN LUNGS: Clear HEART: S1S2, no gallop, no murmur ABD: Soft, NT, no organomegaly, no rebound, less distension Suprapubic EXT: No edema, no cyanosis. Wound vac to left hip VOICE PROFESSOR: Alert, oriented x 3 SKIN: No rash IV: ok Labs Lab Laboratory Tests Test 02/23/17 23:36 Glucose (Fingerstick) 162mg/dL (70-99) Objective Assessment Fever at home Draining left hip wound. MRI + draining wound/bursitis/osteo Right 2 nd toe wound -XRAY -neg UTI - POA yeast also Ileus - improved on KUB. 4 stools per nursing Plan Plan of Care PICC line F/u cult left hip wound S/p Left hip I and D 02/23 F/u Urine cults F/u labs Cont Vanc/zosynFluconzole Change suprapubic today LOREE TELLEZ MD Feb 24, 2017 08:11
--- NOTE | 2017-02-24 08:31 | PDOC ---
YEIMI VALE MALT SPECIFICATIONS CONTROL ASSISTANT 02/24/17 0831: SURGICAL PROGRESS NOTE Subjective tolerating diet bowels working no bloating Vital Signs Vital Signs Date Time Temp Pulse Resp B/P Pulse Ox O2 Delivery O2 Flow Rate FiO2 02/24/17 07:00 96.8 69 18 122/68 92 Room Air 96.8 I&O Intake and Output 02/24/17 07:00 Intake Total 600 ml Output Total 2000 ml Balance -1400 ml Intake Oral 600 ml Output Urine Total 2000 ml General: Alert, Oriented X3, Cooperative, No acute distress Abdomen: Soft, No tenderness Labs Laboratory Tests Test 02/22/17 13:45 02/23/17 00:50 02/23/17 01:00 02/23/17 23:36 Erythrocyte Sedimentation Rate 39 (0-15) Sodium Level 142mmol/L (136-145) Potassium Level 3.7mmol/L (3.5-5.1) Chloride Level 105mmol/L (98-107) Carbon Dioxide Level 19mmol/L (21-32) Anion Gap 18 (6-14) Blood Urea Nitrogen 11mg/dL (8-26) Creatinine 0.7mg/dL (0.7-1.3) Estimated GFR (Cockcroft-Gault) 115.8 Glucose Level 60mg/dL (70-99) Calcium Level 8.1mg/dL (8.5-10.1) White Blood Count 5.2x10^3/uL (4.0-11.0) Red Blood Count 3.36x10^6/uL (4.30-5.70) Hemoglobin 10.1g/dL (13.0-17.5) Hematocrit 30.5% (39.0-53.0) Mean Corpuscular Volume 91fL (79-100) Mean Corpuscular Hemoglobin 30pg (25-35) Mean Corpuscular Hemoglobin Concent 33g/dL (31-37) Red Cell Distribution Width 13.6% (11.5-14.5) Platelet Count 165x10^3/uL (140-400) Neutrophils (%) (Auto) 64% (31-73) Lymphocytes (%) (Auto) 19% (24-48) Monocytes (%) (Auto) 13% (0-9) Eosinophils (%) (Auto) 3% (0-3) Basophils (%) (Auto) 1% (0-3) Neutrophils # (Auto) 3.3x10^3uL (1.8-7.7) Lymphocytes # (Auto) 1.0x10^3/uL (1.0-4.8) Monocytes # (Auto) 0.7x10^3/uL (0.0-1.1) Eosinophils # (Auto) 0.2x10^3/uL (0.0-0.7) Basophils # (Auto) 0.0x10^3/uL (0.0-0.2) Vancomycin Level Trough 20.0mcg/mL (10.0-20.0) Vancomycin Last Dose Date [id number] Vancomycin Last Dose Time 1700 Glucose (Fingerstick) 162mg/dL (70-99) Laboratory Tests Test 02/23/17 23:36 Glucose (Fingerstick) 162mg/dL (70-99) Problem List Problems Medical Problems: (1) Fever Status: Acute (2) Paraplegia Status: Acute (3) Wound drainage Status: Acute Assessment/Plan colonic ileus vs possible obstruction--bowels functioning now osteomyelitis, underwent debridement with ortho GI following, considering colonoscopy at some point no surgical plans, Dr Little available over weekend if needed, otherwise will FU on Monday Problems: FAN BRANTLEY MD 02/24/17 1558: SURGICAL PROGRESS NOTE Assessment/Plan Pt seen and examined. Agree with Ms. Vale's note Pt denies abd pain, but having some possible breathing issues sa 95% abd soft cont supportive care, will defer breathing w/u to primary Problems: YEIMI VALE APRN Feb 24, 2017 08:31 FAN BRANTLEY MD Feb 24, 2017 15:58
[2017-02-24] MEDS: silver sulfADIAZINE 1% CREAM 25GM TUBE. TP SCH ×3 (09:00→20:40)
[2017-02-24] MEDS: CYANOCOBALAMIN (VITAMIN B-12) 1,000 MCG TABLET. PO SCH (09:05)
[2017-02-24] MEDS: ASCORBIC ACID 500 MG TABLET PO SCH (09:05)
[2017-02-24] MEDS: CHOLECALCIFEROL (VITAMIN D3) 1,000 UNIT TABLET PO SCH (09:05)
[2017-02-24] MEDS: FENOFIBRATE,MICRONIZED 134 MG CAPSULE PO SCH (09:05)
[2017-02-24] MEDS: METFORMIN 500 MG TABLET. PO SCH ×2 (09:05→19:16)
[2017-02-24] MEDS: FLUCONAZOLE 100 MG TABLET. PO SCH (09:05)
[2017-02-24] MEDS: VITAMIN E 200 UNIT CAPSULE. PO SCH (09:05)
--- NOTE | 2017-02-24 09:27 | PDOC ---
Subjective: Subjective: Feeling better, tolerating regular diet w/o n/v or abd pain. Stools yesterday. Still undecided re: colonoscopy. Objective: Vital Signs: Vital Signs Date Time Temp Pulse Resp B/P Pulse Ox O2 Delivery O2 Flow Rate FiO2 02/24/17 07:00 96.8 69 18 122/68 92 Room Air 96.8 Labs: Laboratory Tests Test 02/23/17 23:36 Glucose (Fingerstick) 162mg/dL (70-99) PE: GEN: NAD LUNGS: CTAB HEART: RRR ABD: NABS, S/NT NEURO/PSYCH: A & O 3 A/P: Constipation, ileus - resolved -considering colonoscopy, no previous Osteomyelitis -s/p I&D -- Improved GI-meneses. FERN CONCEPCION Feb 24, 2017 09:27
[2017-02-24] MEDS ORDERED: POLYETHYLENE GLYCOL 3350 17 GM PACKET. PO PRN (09:30)
[2017-02-24 11:00] VITALS: BP 106/60
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
[2017-02-24] MEDS ORDERED: FENTANYL PF 100 MCG/2 ML VIAL. IV PRN (11:15)
[2017-02-24] MEDS ORDERED: OXYCODONE/APAP 5/325 TABLET. PO PRN (11:15)
--- NOTE | 2017-02-24 11:29 | PDOC ---
ORTHO PROGRESS NOTES Subjective Brain tells me he is doing well after his surgery. He denies any particular complaints or concern. Vitals Vital Signs Date Time Temp Pulse Resp B/P Pulse Ox O2 Delivery O2 Flow Rate FiO2 02/24/17 08:00 Room Air 02/24/17 07:00 96.8 69 18 122/68 92 96.8 Labs Laboratory Tests Test 02/22/17 13:45 02/23/17 00:50 02/23/17 01:00 02/23/17 23:36 Erythrocyte Sedimentation Rate 39 (0-15) Sodium Level 142mmol/L (136-145) Potassium Level 3.7mmol/L (3.5-5.1) Chloride Level 105mmol/L (98-107) Carbon Dioxide Level 19mmol/L (21-32) Anion Gap 18 (6-14) Blood Urea Nitrogen 11mg/dL (8-26) Creatinine 0.7mg/dL (0.7-1.3) Estimated GFR (Cockcroft-Gault) 115.8 Glucose Level 60mg/dL (70-99) Calcium Level 8.1mg/dL (8.5-10.1) White Blood Count 5.2x10^3/uL (4.0-11.0) Red Blood Count 3.36x10^6/uL (4.30-5.70) Hemoglobin 10.1g/dL (13.0-17.5) Hematocrit 30.5% (39.0-53.0) Mean Corpuscular Volume 91fL (79-100) Mean Corpuscular Hemoglobin 30pg (25-35) Mean Corpuscular Hemoglobin Concent 33g/dL (31-37) Red Cell Distribution Width 13.6% (11.5-14.5) Platelet Count 165x10^3/uL (140-400) Neutrophils (%) (Auto) 64% (31-73) Lymphocytes (%) (Auto) 19% (24-48) Monocytes (%) (Auto) 13% (0-9) Eosinophils (%) (Auto) 3% (0-3) Basophils (%) (Auto) 1% (0-3) Neutrophils # (Auto) 3.3x10^3uL (1.8-7.7) Lymphocytes # (Auto) 1.0x10^3/uL (1.0-4.8) Monocytes # (Auto) 0.7x10^3/uL (0.0-1.1) Eosinophils # (Auto) 0.2x10^3/uL (0.0-0.7) Basophils # (Auto) 0.0x10^3/uL (0.0-0.2) Vancomycin Level Trough 20.0mcg/mL (10.0-20.0) Vancomycin Last Dose Date [id number] Vancomycin Last Dose Time 1700 Glucose (Fingerstick) 162mg/dL (70-99) Laboratory Tests Test 02/23/17 23:36 Glucose (Fingerstick) 162mg/dL (70-99) Notes His cultures have yielded mixed skin jason to date. He is awake and alert and sitting in bed. His wound VAC is in place over his left hip with a good seal. Assessment and Plan We will get a PT consult for wound VAC eval and treat for wound VAC changes. I would anticipate he will need home health care for wound VAC changes. We will follow along with the cultures and his postoperative course. MATHEW GONZALES II, MD Feb 24, 2017 11:29
[2017-02-24] MEDS: VANCOMYCIN PER PHARMACY MC PRN (13:34)
[2017-02-24] MEDS: BISACODYL 10 MG SUPP.RECT. PR SCH (13:56)
[2017-02-24 14:59] VITALS: BP 110/64
--- NOTE | 2017-02-24 16:13 | RAD ---
Portable chest, 02/24/2017: History: Altered status, hypoxia The heart size and pulmonary vascularity are normal. No pulmonary infiltrates are seen. There is no evidence of pleural fluid. Old right-sided rib fractures are again noted. IMPRESSION: No acute cardiopulmonary abnormality is detected.
[2017-02-24 19:48] VITALS: BP 132/85
[2017-02-24] MEDS: IPRATRPIUM/ALBUTEROL 0.5/2.5MG 3 ML NEBU. NEB SCH (20:12)
[2017-02-24] MEDS: ATORVASTATIN CALCIUM 20 MG TABLET PO SCH (20:40)
[2017-02-24 23:41] VITALS: BP 104/58
[2017-02-25] MEDS: PIPERACILLIN/TAZOBACTAM 3.375 GM in IV NORMAL SALINE 50ML 50 ML IV SCH ×5 (01:45→23:41)
[2017-02-25] MEDS: VANCOMYCIN 1 GM in IV NORMAL SALINE 250ML 250 ML IV SCH ×3 (01:46→17:20)
[2017-02-25 03:57] VITALS: BP 141/80
[2017-02-25] MEDS: IPRATRPIUM/ALBUTEROL 0.5/2.5MG 3 ML NEBU. NEB SCH ×4 (06:37→21:07)
[2017-02-25 07:22] VITALS: BP 137/82
--- NOTE | 2017-02-25 08:06 | PDOC ---
ORTHO PROGRESS NOTES Subjective No new complaints. VAC changed yesterday. Vitals Vital Signs Date Time Temp Pulse Resp B/P Pulse Ox O2 Delivery O2 Flow Rate FiO2 02/25/17 07:22 97.8 74 20 137/82 95 Room Air 97.8 Labs Laboratory Tests Test 02/23/17 23:36 02/24/17 16:05 02/24/17 21:30 02/25/17 06:15 Glucose (Fingerstick) 162mg/dL (70-99) D-Dimer (Yamileth) 0.65ug/mlFEU (0.00-0.50) Troponin I Quantitative < 0.017ng/mL (0.000-0.055) 0.019ng/mL (0.000-0.055) < 0.017ng/mL (0.000-0.055) Laboratory Tests Test 02/24/17 16:05 02/24/17 21:30 02/25/17 06:15 D-Dimer (Yamileth) 0.65ug/mlFEU (0.00-0.50) Troponin I Quantitative < 0.017ng/mL (0.000-0.055) 0.019ng/mL (0.000-0.055) < 0.017ng/mL (0.000-0.055) Notes A and A sitting in bed VAC in place with good seal no erythema around wound Assessment and Plan I and D, VAC; L hip wound, osteo abx per ID will need VAC at home MATHEW GONZALES II, MD Feb 25, 2017 08:06
[2017-02-25] MEDS: CYANOCOBALAMIN (VITAMIN B-12) 1,000 MCG TABLET. PO SCH (09:50)
[2017-02-25] MEDS: FENOFIBRATE,MICRONIZED 134 MG CAPSULE PO SCH (09:50)
[2017-02-25] MEDS: METFORMIN 500 MG TABLET. PO SCH ×2 (09:50→18:08)
[2017-02-25] MEDS: VITAMIN E 200 UNIT CAPSULE. PO SCH (09:50)
[2017-02-25] MEDS: FLUCONAZOLE 100 MG TABLET. PO SCH (09:50)
[2017-02-25] MEDS: CHOLECALCIFEROL (VITAMIN D3) 1,000 UNIT TABLET PO SCH (09:51)
[2017-02-25] MEDS: ASCORBIC ACID 500 MG TABLET PO SCH (09:51)
[2017-02-25] MEDS: silver sulfADIAZINE 1% CREAM 25GM TUBE. TP SCH (09:51)
[2017-02-25] MEDS ORDERED: ASPIRIN ENTERIC COATED 81 MG TABLET.DR. PO SCH (10:15)
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
[2017-02-25 10:53] VITALS: BP 142/79
--- NOTE | 2017-02-25 12:31 | PDOC ---
Infectious Disease Note Subjective Subjective Feeling well No concerns ROS ROS GEN: Denies fevers, chills, sweats HEENT: Denies sore throat CV: Denies chest pain RESP: Denies shortness of air, cough GI: Denies n/v/d Vital Sign Vital Signs Vital Signs Date Time Temp Pulse Resp B/P Pulse Ox O2 Delivery O2 Flow Rate FiO2 02/25/17 11:06 94 Room Air 02/25/17 10:53 98.0 82 20 142/79 98.0 Physical Exam PHYSICAL EXAM GENERAL: Propped up in bed, NAD HEENT: OP/OC clear NECK: Supple, no JVD, no LN LUNGS: Clear HEART: S1S2, no gallop, no murmur ABD: Obese, BS present, soft. supra-pubic cath (chg'd 02/24) EXT: No edema, no cyanosis [employer]ES: Alert, oriented x 3. Paraplegia. SKIN: No rash. Left lateral hip wound vac in place, some oozing of sanguinous drainage, no are redness RUE-PICC. clean Labs Lab Laboratory Tests Test 02/24/17 16:05 02/24/17 21:30 02/25/17 06:15 D-Dimer (Yamileth) 0.65ug/mlFEU (0.00-0.50) Troponin I Quantitative < 0.017ng/mL (0.000-0.055) 0.019ng/mL (0.000-0.055) < 0.017ng/mL (0.000-0.055) Micro BLOOD CULTURE Preliminary NO GROWTH AFTER 3 DAYS Left hip- intra-op GRAM STAIN Final WBCS NONE SEEN RBCS MANY ORGANISMS NONE SEEN URINE CULTURE RES 1 Final Comment Mixed urogenital jason Objective Assessment Fever at home Draining left hip wound with greater trochanteric bursitis and osteomyelitis on MRI. -swab culture: mixed jason. 02/22 -s/p I and D down to bone; Bx greater trochanter & wound vac application. . Intra-op GS no organisms Right 2 nd toe wound -XRAY -neg UTI - POA yeast also. Ileus - improved on KUB. + BM Plan Plan of Care Vanc, Zosyn & fluconazole f/u cultures Supportive care Patient seen and examined. Chart reviewed in detail. Case discussed with SENIOR COMMUNICATIONS SPECIALIST. Agree with above plan CHRISTINE PORTILLO RECEPTIONIST DOCTOR'S OFFICE Feb 25, 2017 12:31 ADI GTZ MD Feb 25, 2017 15:21
[2017-02-25] MEDS: ASPIRIN CHEWABLE 81 MG TABLET. PO SCH (12:44)
[2017-02-25] MEDS: VANCOMYCIN PER PHARMACY MC PRN (15:03)
[2017-02-25 15:12] VITALS: BP 151/87
[2017-02-25] MEDS ORDERED: BENZOCAINE/MENTHOL LOZENGE. PO PRN (17:30)
[2017-02-25 19:25] VITALS: BP 143/87
[2017-02-25] MEDS: ATORVASTATIN CALCIUM 20 MG TABLET PO SCH (21:24)
[2017-02-25 23:35] VITALS: BP 135/72
[2017-02-26] MEDS: VANCOMYCIN 1 GM in IV NORMAL SALINE 250ML 250 ML IV SCH ×3 (00:40→17:36)
[2017-02-26] MEDS: PIPERACILLIN/TAZOBACTAM 3.375 GM in IV NORMAL SALINE 50ML 50 ML IV SCH ×3 (05:59→18:00)
[2017-02-26] MEDS: IPRATRPIUM/ALBUTEROL 0.5/2.5MG 3 ML NEBU. NEB SCH ×4 (06:24→19:46)
[2017-02-26 07:00] VITALS: BP 136/92
[2017-02-26] MEDS ORDERED: DEXTROSE 50% 25 GM / 50ML DISP.SYRIN. IV PRN (08:45)
[2017-02-26] MEDS: BISACODYL 10 MG SUPP.RECT. PR SCH (08:59)
[2017-02-26] MEDS: METFORMIN 500 MG TABLET. PO SCH ×2 (09:00→17:35)
[2017-02-26] MEDS: FENOFIBRATE,MICRONIZED 134 MG CAPSULE PO SCH (09:00)
[2017-02-26] MEDS: FLUCONAZOLE 100 MG TABLET. PO SCH (09:00)
[2017-02-26] MEDS: CHOLECALCIFEROL (VITAMIN D3) 1,000 UNIT TABLET PO SCH (09:00)
[2017-02-26] MEDS: ASCORBIC ACID 500 MG TABLET PO SCH (09:00)
[2017-02-26] MEDS: ASPIRIN CHEWABLE 81 MG TABLET. PO SCH (09:00)
[2017-02-26] MEDS: VITAMIN E 200 UNIT CAPSULE. PO SCH (09:00)
[2017-02-26] MEDS: CYANOCOBALAMIN (VITAMIN B-12) 1,000 MCG TABLET. PO SCH (09:00)
[2017-02-26] MEDS: INSULIN ASPART 300 UNITS/3 ML INSULN.PEN SQ SCH ×3 (09:00→17:00)
--- NOTE | 2017-02-26 09:31 | PDOC ---
Infectious Disease Note Subjective Subjective Comfortable ROS ROS GEN: Denies fevers, chills, sweats HEENT: Denies sore throat CV: Denies chest pain RESP: Denies shortness of air, cough GI: Denies n/v/d Vital Sign Vital Signs Vital Signs Date Time Temp Pulse Resp B/P Pulse Ox O2 Delivery O2 Flow Rate FiO2 02/26/17 07:00 98.1 90 20 136/92 92 Room Air 98.1 Physical Exam PHYSICAL EXAM GENERAL: ALert, lying down, NAD HEENT: OP/OC clear LUNGS: Clear HEART: S1S2, no gallop, no murmur ABD: Obese, BS present, soft. 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 Paraplegia. SKIN: No rash. Left lateral hip wound vac in place, no area redness RUE-PICC. clean Labs Micro BLOOD CULTURE Preliminary NO GROWTH AFTER 4 DAYS Objective Assessment Fever at home Draining left hip wound with greater trochanteric bursitis and osteomyelitis on MRI. -swab culture: mixed jaosn. 02/22 -s/p I and D down to bone; Bx greater trochanter & wound vac application. . Intra-op GS no organisms. cultures NGTD Right 2 nd toe wound -XRAY -neg UTI - POA yeast also. Ileus - improved on KUB. + BM Plan Plan of Care Vanc, Zosyn & fluconazole f/u cultures am labs Supportive care Patient seen and examined. Chart reviewed. 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 Agree with above plan CHRISTINE PORTILLO APRN Feb 26, 2017 09:31 ADI GTZ MD Feb 26, 2017 16:01
[2017-02-26 11:00] VITALS: BP 153/92
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
[2017-02-26] MEDS: VANCOMYCIN PER PHARMACY MC PRN (14:35)
[2017-02-26 15:00] VITALS: BP 165/93
--- NOTE | 2017-02-26 15:07 | PDOC ---
ORTHO PROGRESS NOTES Subjective No complaints. some leakage around the adhesive last night Vitals Vital Signs Date Time Temp Pulse Resp B/P Pulse Ox O2 Delivery O2 Flow Rate FiO2 02/26/17 15:00 98.4 71 20 165/93 94 Room Air 98.4 Labs Laboratory Tests Test 02/24/17 16:05 02/24/17 21:30 02/25/17 06:15 02/26/17 11:43 D-Dimer (Yamileth) 0.65ug/mlFEU (0.00-0.50) Troponin I Quantitative < 0.017ng/mL (0.000-0.055) 0.019ng/mL (0.000-0.055) < 0.017ng/mL (0.000-0.055) Glucose (Fingerstick) 137mg/dL (70-99) Laboratory Tests Test 02/26/17 11:43 Glucose (Fingerstick) 137mg/dL (70-99) Notes A and A L hip: VAC in place, good seal surrounding skin looks good Assessment and Plan cont VAC Skin jason and diptheroids on Cx MATHEW GONZALES II, MD Feb 26, 2017 15:07
[2017-02-26 19:39] VITALS: BP 167/89
[2017-02-26] MEDS: ATORVASTATIN CALCIUM 20 MG TABLET PO SCH (21:11)
[2017-02-26 23:45] VITALS: BP 132/78
[2017-02-27] MEDS: PIPERACILLIN/TAZOBACTAM 3.375 GM in IV NORMAL SALINE 50ML 50 ML IV SCH ×4 (00:08→17:45)
[2017-02-27] MEDS: VANCOMYCIN 1 GM in IV NORMAL SALINE 250ML 250 ML IV SCH ×2 (01:24→08:10)
[2017-02-27 02:51] VITALS: BP 137/90
[2017-02-27 06:40] LABS: BASO % 1 % (0-3); EOS % 4 % (0-3); HEMATOCRIT 28.8 % (39.0-53.0); HEMOGLOBIN 9.8 g/dL (13.0-17.5); LYMPH # 1.3 x10^3/uL (1.0-4.8); LYMPH % 26 % (24-48); MEAN CORPUSCULAR HEMOGLOBIN 30 pg (25-35); MEAN CORPUSCULAR HGB CONC 34 g/dL (31-37); MEAN CORPUSCULAR VOLUME 89 fL (79-100); MONO % 8 % (0-9); NEUT % 61 % (31-73); PLATELET COUNT 163 x10^3/uL (140-400); RED BLOOD COUNT 3.26 x10^6/uL (4.30-5.70); RED CELL DISTRIBUTION WIDTH 13.4 % (11.5-14.5)
[2017-02-27 07:00] VITALS: BP 152/95
[2017-02-27 07:08] LABS: CALCIUM 8.3 mg/dL (8.5-10.1); CREATININE 0.7 mg/dL (0.7-1.3); GFR 115.8
[2017-02-27] MEDS: IPRATRPIUM/ALBUTEROL 0.5/2.5MG 3 ML NEBU. NEB SCH ×4 (07:55→19:32)
[2017-02-27] MEDS: INSULIN ASPART 300 UNITS/3 ML INSULN.PEN SQ SCH ×3 (08:00→17:00)
[2017-02-27] MEDS: METFORMIN 500 MG TABLET. PO SCH ×2 (08:07→17:00)
[2017-02-27] MEDS: CYANOCOBALAMIN (VITAMIN B-12) 1,000 MCG TABLET. PO SCH (08:08)
[2017-02-27] MEDS: ASCORBIC ACID 500 MG TABLET PO SCH (08:08)
[2017-02-27] MEDS: FENOFIBRATE,MICRONIZED 134 MG CAPSULE PO SCH (08:08)
[2017-02-27] MEDS: VITAMIN E 200 UNIT CAPSULE. PO SCH (08:08)
[2017-02-27] MEDS: CHOLECALCIFEROL (VITAMIN D3) 1,000 UNIT TABLET PO SCH (08:09)
[2017-02-27] MEDS: ASPIRIN CHEWABLE 81 MG TABLET. PO SCH (08:09)
[2017-02-27] MEDS: FLUCONAZOLE 100 MG TABLET. PO SCH (08:09)
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
--- NOTE | 2017-02-27 10:21 | PDOC ---
Infectious Disease Note Subjective Subjective Comfortable ROS ROS GEN: Denies fevers, chills, sweats HEENT: Denies blurred vision, sore throat CV: Denies chest pain RESP: Denies shortness of air, cough GI: Denies n/v/d NEURO: Denies confusion, dizziness MSK: Denies weakness, joint pain/swelling Vital Sign Vital Signs Vital Signs Date Time Temp Pulse Resp B/P Pulse Ox O2 Delivery O2 Flow Rate FiO2 02/27/17 08:00 Room Air 02/27/17 07:56 97 02/27/17 07:00 98.4 79 20 152/95 98.4 Physical Exam PHYSICAL EXAM GENERAL: ALert, lying down, NAD HEENT: OP/OC clear LUNGS: Clear HEART: S1S2, no gallop, no murmur ABD: Obese, BS present, soft. 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 Paraplegia. SKIN: No rash. Left lateral hip wound vac in place, no area redness - min drainage RUE-PICC. clean Labs Lab Laboratory Tests Test 02/26/17 11:43 02/26/17 16:36 02/26/17 20:38 02/27/17 06:00 Glucose (Fingerstick) 137mg/dL (70-99) 156mg/dL (70-99) 164mg/dL (70-99) White Blood Count 5.0x10^3/uL (4.0-11.0) Red Blood Count 3.26x10^6/uL (4.30-5.70) Hemoglobin 9.8g/dL (13.0-17.5) Hematocrit 28.8% (39.0-53.0) Mean Corpuscular Volume 89fL (79-100) Mean Corpuscular Hemoglobin 30pg (25-35) Mean Corpuscular Hemoglobin Concent 34g/dL (31-37) Red Cell Distribution Width 13.4% (11.5-14.5) Platelet Count 163x10^3/uL (140-400) Neutrophils (%) (Auto) 61% (31-73) Lymphocytes (%) (Auto) 26% (24-48) Monocytes (%) (Auto) 8% (0-9) Eosinophils (%) (Auto) 4% (0-3) Basophils (%) (Auto) 1% (0-3) Neutrophils # (Auto) 3.0x10^3uL (1.8-7.7) Lymphocytes # (Auto) 1.3x10^3/uL (1.0-4.8) Monocytes # (Auto) 0.4x10^3/uL (0.0-1.1) Eosinophils # (Auto) 0.2x10^3/uL (0.0-0.7) Basophils # (Auto) 0.0x10^3/uL (0.0-0.2) Sodium Level 143mmol/L (136-145) Potassium Level 4.0mmol/L (3.5-5.1) Chloride Level 105mmol/L (98-107) Carbon Dioxide Level 28mmol/L (21-32) Anion Gap 10 (6-14) Blood Urea Nitrogen 8mg/dL (8-26) Creatinine 0.7mg/dL (0.7-1.3) Estimated GFR (Cockcroft-Gault) 115.8 Glucose Level 101mg/dL (70-99) Calcium Level 8.3mg/dL (8.5-10.1) Test 02/27/17 07:06 Glucose (Fingerstick) 109mg/dL (70-99) Objective Assessment Fever at home Draining left hip wound with greater trochanteric bursitis and osteomyelitis on MRI. -swab culture: mixed jason. 02/22 -s/p I and D down to bone; Bx greater trochanter & wound vac application. . Intra-op GS no organisms. cultures NGTD Right 2 nd toe wound -XRAY -neg UTI - POA yeast also. Ileus - improved on KUB. + BM Plan Plan of Care Cont Vanc but adjust to 1.25 Q 12, Zosyn (can be q 6 or continuous infusion 13.5 gms continuous infusion) will need for 5 weeks wean fluconazole after 02/28 Weekly labs - Q Monday - CBC/Sed rate/Vanc trough/Cr - fax to [phone] F/u ID office in 2 weeks [phone] Ok to transfer or d/c home from ID standpoint LOREE TELLEZ MD Feb 27, 2017 10:21
[2017-02-27 10:47] VITALS: BP 147/91
--- NOTE | 2017-02-27 11:05 | PDOC ---
SURGICAL PROGRESS NOTE Subjective tolerating diet having stools no n/v Vital Signs Vital Signs Date Time Temp Pulse Resp B/P Pulse Ox O2 Delivery O2 Flow Rate FiO2 02/27/17 10:47 98.4 81 18 147/91 93 Room Air 98.4 I&O Intake and Output 02/27/17 07:00 Intake Total 2200 ml Output Total 4451 ml Balance -2251 ml Intake Oral 2200 ml Output Urine Total 4450 ml Stool Total 1 ml General: Alert, Oriented X3, Cooperative, No acute distress Abdomen: Soft, No tenderness Labs Laboratory Tests Test 02/26/17 11:43 02/26/17 16:36 02/26/17 20:38 02/27/17 06:00 Glucose (Fingerstick) 137mg/dL (70-99) 156mg/dL (70-99) 164mg/dL (70-99) White Blood Count 5.0x10^3/uL (4.0-11.0) Red Blood Count 3.26x10^6/uL (4.30-5.70) Hemoglobin 9.8g/dL (13.0-17.5) Hematocrit 28.8% (39.0-53.0) Mean Corpuscular Volume 89fL (79-100) Mean Corpuscular Hemoglobin 30pg (25-35) Mean Corpuscular Hemoglobin Concent 34g/dL (31-37) Red Cell Distribution Width 13.4% (11.5-14.5) Platelet Count 163x10^3/uL (140-400) Neutrophils (%) (Auto) 61% (31-73) Lymphocytes (%) (Auto) 26% (24-48) Monocytes (%) (Auto) 8% (0-9) Eosinophils (%) (Auto) 4% (0-3) Basophils (%) (Auto) 1% (0-3) Neutrophils # (Auto) 3.0x10^3uL (1.8-7.7) Lymphocytes # (Auto) 1.3x10^3/uL (1.0-4.8) Monocytes # (Auto) 0.4x10^3/uL (0.0-1.1) Eosinophils # (Auto) 0.2x10^3/uL (0.0-0.7) Basophils # (Auto) 0.0x10^3/uL (0.0-0.2) Sodium Level 143mmol/L (136-145) Potassium Level 4.0mmol/L (3.5-5.1) Chloride Level 105mmol/L (98-107) Carbon Dioxide Level 28mmol/L (21-32) Anion Gap 10 (6-14) Blood Urea Nitrogen 8mg/dL (8-26) Creatinine 0.7mg/dL (0.7-1.3) Estimated GFR (Cockcroft-Gault) 115.8 Glucose Level 101mg/dL (70-99) Calcium Level 8.3mg/dL (8.5-10.1) Test 02/27/17 07:06 Glucose (Fingerstick) 109mg/dL (70-99) Laboratory Tests Test 02/26/17 11:43 02/26/17 16:36 02/26/17 20:38 02/27/17 06:00 Glucose (Fingerstick) 137mg/dL (70-99) 156mg/dL (70-99) 164mg/dL (70-99) White Blood Count 5.0x10^3/uL (4.0-11.0) Red Blood Count 3.26x10^6/uL (4.30-5.70) Hemoglobin 9.8g/dL (13.0-17.5) Hematocrit 28.8% (39.0-53.0) Mean Corpuscular Volume 89fL (79-100) Mean Corpuscular Hemoglobin 30pg (25-35) Mean Corpuscular Hemoglobin Concent 34g/dL (31-37) Red Cell Distribution Width 13.4% (11.5-14.5) Platelet Count 163x10^3/uL (140-400) Neutrophils (%) (Auto) 61% (31-73) Lymphocytes (%) (Auto) 26% (24-48) Monocytes (%) (Auto) 8% (0-9) Eosinophils (%) (Auto) 4% (0-3) Basophils (%) (Auto) 1% (0-3) Neutrophils # (Auto) 3.0x10^3uL (1.8-7.7) Lymphocytes # (Auto) 1.3x10^3/uL (1.0-4.8) Monocytes # (Auto) 0.4x10^3/uL (0.0-1.1) Eosinophils # (Auto) 0.2x10^3/uL (0.0-0.7) Basophils # (Auto) 0.0x10^3/uL (0.0-0.2) Sodium Level 143mmol/L (136-145) Potassium Level 4.0mmol/L (3.5-5.1) Chloride Level 105mmol/L (98-107) Carbon Dioxide Level 28mmol/L (21-32) Anion Gap 10 (6-14) Blood Urea Nitrogen 8mg/dL (8-26) Creatinine 0.7mg/dL (0.7-1.3) Estimated GFR (Cockcroft-Gault) 115.8 Glucose Level 101mg/dL (70-99) Calcium Level 8.3mg/dL (8.5-10.1) Test 02/27/17 07:06 Glucose (Fingerstick) 109mg/dL (70-99) Problem List Problems Medical Problems: (1) Fever Status: Acute (2) Paraplegia Status: Acute (3) Wound drainage Status: Acute Assessment/Plan no general surgery needs will sign off, please call if questions/assistance needed Problems: YEIMI VALE APRN Feb 27, 2017 11:05
[2017-02-27] MEDS: ENOXAPARIN 40 MG/0.4 ML SYRINGE. SQ SCH (11:47)
[2017-02-27] MEDS: VANCOMYCIN PER PHARMACY MC PRN (14:19)
--- NOTE | 2017-02-27 14:38 | PDOC ---
Subjective: Subjective: No GI complaints. Eating and stooling. Objective: Vital Signs: Vital Signs Date Time Temp Pulse Resp B/P Pulse Ox O2 Delivery O2 Flow Rate FiO2 02/27/17 13:12 Room Air 02/27/17 10:47 98.4 81 18 147/91 93 98.4 Labs: Laboratory Tests Test 02/26/17 16:36 02/26/17 20:38 02/27/17 07:06 02/27/17 12:04 Glucose (Fingerstick) 156mg/dL (70-99) 164mg/dL (70-99) 109mg/dL (70-99) 108mg/dL (70-99) PE: GEN: NAD LUNGS: CTAB HEART: RRR ABD: S/ND/NT NEURO/PSYCH: A & O 3 A/P: Constipation, ileus - resolved -no previous colonoscopy, still considering as outpatient Osteomyelitis -s/p I&D, on atbx -- Continue same per GI. FERN CONCEPCION Feb 27, 2017 14:38
[2017-02-27 15:00] VITALS: BP 169/87
--- NOTE | 2017-02-27 15:50 | RAD ---
Bilateral lower extremity venous ultrasound, 02/27/2017: History: Elevated d-dimer Duplex evaluation of the deep veins in the lower extremities was performed including grayscale, color-flow and spectral Doppler analysis. The femoral and popliteal veins demonstrate normal compressibility and normal responses to distal augmentation maneuvers. Color imaging of those vessels shows no evidence of intraluminal clot. The visualized deep veins in both calves are patent. IMPRESSION: There is no sonographic evidence of deep vein thrombosis in either lower extremity.
[2017-02-27] MEDS ORDERED: BISACODYL 10 MG SUPP.RECT. PR PRN (17:00)
[2017-02-27 19:57] VITALS: BP 158/92
[2017-02-27] MEDS: ATORVASTATIN CALCIUM 20 MG TABLET PO SCH (20:03)
[2017-02-27] MEDS: VANCOMYCIN 1.25 GM in IV NORMAL SALINE 250ML 250 ML IV SCH (20:03)
[2017-02-27 23:25] VITALS: BP 151/89
[2017-02-28] MEDS: PIPERACILLIN/TAZOBACTAM 3.375 GM in IV NORMAL SALINE 50ML 50 ML IV SCH ×4 (00:11→17:47)
[2017-02-28 03:33] VITALS: BP_SYST 86
[2017-02-28] MEDS: IPRATRPIUM/ALBUTEROL 0.5/2.5MG 3 ML NEBU. NEB SCH ×4 (06:15→18:35)
[2017-02-28 07:00] VITALS: BP 125/86
[2017-02-28] MEDS ORDERED: ALTEPLASE 2 MG VIAL INT CAT ONE (07:00)
[2017-02-28] MEDS: INSULIN ASPART 300 UNITS/3 ML INSULN.PEN SQ SCH ×3 (08:00→17:00)
[2017-02-28] MEDS: VITAMIN E 200 UNIT CAPSULE. PO SCH (08:51)
[2017-02-28] MEDS: FLUCONAZOLE 100 MG TABLET. PO SCH (08:51)
[2017-02-28] MEDS: CHOLECALCIFEROL (VITAMIN D3) 1,000 UNIT TABLET PO SCH (08:52)
[2017-02-28] MEDS: ASCORBIC ACID 500 MG TABLET PO SCH (08:52)
[2017-02-28] MEDS: CYANOCOBALAMIN (VITAMIN B-12) 1,000 MCG TABLET. PO SCH (08:52)
[2017-02-28] MEDS: METFORMIN 500 MG TABLET. PO SCH ×2 (08:52→17:46)
--- NOTE | 2017-02-28 08:52 | PDOC ---
Subjective: Subjective: No GI complaints. BM this morning. Objective: Vital Signs: Vital Signs Date Time Temp Pulse Resp B/P Pulse Ox O2 Delivery O2 Flow Rate FiO2 02/28/17 07:00 98.0 93 18 125/86 95 Room Air 98.0 Labs: Laboratory Tests Test 02/27/17 12:04 02/27/17 16:44 02/27/17 20:59 02/28/17 07:39 Glucose (Fingerstick) 108mg/dL 143mg/dL 149mg/dL 117mg/dL PE: GEN: NAD LUNGS: CTAB HEART: RRR ABD: NABS, S/ND/NT NEURO/PSYCH: A & O 3 A/P: Constipation, ileus - resolved Osteomyelitis -s/p I&D, on atbx -- Improved GI-meneses. Pt considering outpt screening colonoscopy after rehab. [facility] Feb 28, 2017 08:52
[2017-02-28] MEDS: FENOFIBRATE,MICRONIZED 134 MG CAPSULE PO SCH (08:53)
[2017-02-28] MEDS: ASPIRIN CHEWABLE 81 MG TABLET. PO SCH (08:53)
[2017-02-28] MEDS: VANCOMYCIN 1.25 GM in IV NORMAL SALINE 250ML 250 ML IV SCH ×2 (08:54→20:50)
[2017-02-28] MEDS: BISACODYL 10 MG SUPP.RECT. PR SCH (09:00)
[2017-02-28 11:00] VITALS: BP 148/93
[2017-02-28] MEDS: ENOXAPARIN 40 MG/0.4 ML SYRINGE. SQ SCH (11:49)
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
[2017-02-28 15:00] VITALS: BP 131/79
[2017-02-28 19:47] VITALS: BP 128/81
[2017-02-28] MEDS: ATORVASTATIN CALCIUM 20 MG TABLET PO SCH (20:50)
[2017-02-28 23:30] VITALS: BP 136/84
[2017-03-01] MEDS: PIPERACILLIN/TAZOBACTAM 3.375 GM in IV NORMAL SALINE 50ML 50 ML IV SCH ×4 (00:38→16:26)
[2017-03-01] MEDS: IPRATRPIUM/ALBUTEROL 0.5/2.5MG 3 ML NEBU. NEB SCH ×4 (06:10→18:00)
[2017-03-01 07:00] VITALS: BP 120/77
[2017-03-01] MEDS: INSULIN ASPART 300 UNITS/3 ML INSULN.PEN SQ SCH ×3 (08:00→17:00)
[2017-03-01] MEDS: CHOLECALCIFEROL (VITAMIN D3) 1,000 UNIT TABLET PO SCH (08:32)
[2017-03-01] MEDS: VITAMIN E 200 UNIT CAPSULE. PO SCH (08:32)
[2017-03-01] MEDS: CYANOCOBALAMIN (VITAMIN B-12) 1,000 MCG TABLET. PO SCH (08:32)
[2017-03-01] MEDS: ASPIRIN CHEWABLE 81 MG TABLET. PO SCH (08:32)
[2017-03-01] MEDS: METFORMIN 500 MG TABLET. PO SCH ×2 (08:32→16:25)
[2017-03-01] MEDS: FENOFIBRATE,MICRONIZED 134 MG CAPSULE PO SCH (08:32)
[2017-03-01] MEDS: FLUCONAZOLE 100 MG TABLET. PO SCH (08:32)
[2017-03-01] MEDS: VANCOMYCIN 1.25 GM in IV NORMAL SALINE 250ML 250 ML IV SCH ×2 (08:32→20:10)
[2017-03-01] MEDS: ASCORBIC ACID 500 MG TABLET PO SCH (08:32)
[2017-03-01] MEDS: ENOXAPARIN 40 MG/0.4 ML SYRINGE. SQ SCH (08:33)
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
[2017-03-01 11:00] VITALS: BP 132/88
[2017-03-01] MEDS ORDERED: ALTEPLASE 2 MG VIAL INT CAT ONE (11:15)
[2017-03-01] MEDS: BISACODYL 10 MG SUPP.RECT. PR SCH (12:06)
--- NOTE | 2017-03-01 13:10 | PDOC ---
Subjective: Subjective: No GI complaints. Last BM last night. Objective: Vital Signs: Vital Signs Date Time Temp Pulse Resp B/P Pulse Ox O2 Delivery O2 Flow Rate FiO2 03/01/17 11:03 93 Room Air 03/01/17 11:00 97.8 82 18 132/88 97.8 Labs: Laboratory Tests Test 02/28/17 17:20 02/28/17 20:57 03/01/17 07:36 03/01/17 12:21 Glucose (Fingerstick) 166mg/dL (70-99) 159mg/dL (70-99) 106mg/dL (70-99) 103mg/dL (70-99) PE: GEN: NAD LUNGS: CTAB HEART: RRR ABD: NABS, S/ND/NT NEURO/PSYCH: A & O 3 A/P: Constipation, ileus - resolved -- Improved GI-meneses. Dc per primary, follow-up for outpatient colonoscopy. FERN CONCEPCION Mar 01, 2017 13:10
[2017-03-01 15:00] VITALS: BP 138/80
--- NOTE | 2017-03-01 15:14 | PATHOLOGY ---
PATHOLOGY REPORT * * * * * * * * FINAL DIAGNOSIS: A. Soft tissue, "left hip wound tissue", debridement: - Ulceration with fibrosis and granulation tissue. B. Bone, "left hip wound", biopsy: - Portion of unremarkable bone with attached dense fibrous tissue. (SKM:kellie; d/t: 03/01/2017) REPORT ELECTRONICALLY SIGNED BY: Tera Jarvis M.D. DATE/TIME: 03/01/2017 15:13 * * * * * * * * GROSS PATHOLOGY: A. The specimen is received in formalin labeled "Alcira Alan, left hip wound tissue". Received is a segment of pale mathews apparent soft tissue measuring 1.7 x 0.9 x 0.5 cm in greatest dimensions. The specimen is submitted entirely in cassette A1. B. The specimen is received in formalin labeled "Alcira Alan, left hip wound bone". Received are multiple segments of light mathews bone measuring 1.5 x 1.4 x 0.5 cm in aggregate dimensions. The specimen is filtered and entirely submitted in cassette B1, following decalcification. (CAA; 02/27/2017) INITIAL CPT CODE(S): A; 94462 B; 73193, 21334 Professional services performed [place] [facility] [place] [address] Technical services performed by [facility] at [address] [place] [address], [facility] [address] [address]. SPECIMEN(S) RECEIVED: A.Left hip wound tissue B.Left hip wound bone CLINICAL HISTORY: Left hip wound with osteomyelitis PATIENT: ALCIRA ALAN /AGE: 705/07/1960 (Age: 56) PATIENT #: [id number] ALT CASE #: SPECIMEN COLLECTION DATE: 02/23/2017 SPECIMEN RECEIVED DATE: 02/24/2017 [facility] - [address] [place] [address] - PHONE: [phone] * * * END OF REPORT * * *
[2017-03-01 19:20] VITALS: BP 97/69
[2017-03-01] MEDS: ATORVASTATIN CALCIUM 20 MG TABLET PO SCH (20:10)
[2017-03-01 23:22] VITALS: BP 155/92
[2017-03-02] VITALS (7 sets, daily range): BP systolic 89–129; BP diastolic 59–82
[2017-03-02] MEDS: PIPERACILLIN/TAZOBACTAM 3.375 GM in IV NORMAL SALINE 50ML 50 ML IV SCH ×5 (00:23→23:20)
[2017-03-02] MEDS: IPRATRPIUM/ALBUTEROL 0.5/2.5MG 3 ML NEBU. NEB SCH ×4 (07:50→21:01)
[2017-03-02] MEDS: INSULIN ASPART 300 UNITS/3 ML INSULN.PEN SQ SCH ×3 (08:00→17:00)
[2017-03-02] MEDS: ASCORBIC ACID 500 MG TABLET PO SCH (09:37)
[2017-03-02] MEDS: VANCOMYCIN 1.25 GM in IV NORMAL SALINE 250ML 250 ML IV SCH ×2 (09:37→21:18)
[2017-03-02] MEDS: CYANOCOBALAMIN (VITAMIN B-12) 1,000 MCG TABLET. PO SCH (09:37)
[2017-03-02] MEDS: FENOFIBRATE,MICRONIZED 134 MG CAPSULE PO SCH (09:37)
[2017-03-02] MEDS: FLUCONAZOLE 100 MG TABLET. PO SCH (09:39)
[2017-03-02] MEDS: VITAMIN E 200 UNIT CAPSULE. PO SCH (09:39)
[2017-03-02] MEDS: METFORMIN 500 MG TABLET. PO SCH ×2 (09:40→17:46)
[2017-03-02] MEDS: CHOLECALCIFEROL (VITAMIN D3) 1,000 UNIT TABLET PO SCH (09:40)
[2017-03-02] MEDS: ASPIRIN CHEWABLE 81 MG TABLET. PO SCH (09:40)
[2017-03-02] MEDS: ENOXAPARIN 40 MG/0.4 ML SYRINGE. SQ SCH (12:38)
--- NOTE | 2017-03-02 13:27 | PDOC ---
Subjective: Subjective: Small frequent stools w/ movement. Concerned w/ atbx effect on stools. Denies diarrhea. Objective: Vital Signs: Vital Signs Date Time Temp Pulse Resp B/P Pulse Ox O2 Delivery O2 Flow Rate FiO2 03/02/17 11:49 97.5 114 18 112/65 95 Room Air 97.5 Labs: Laboratory Tests Test 03/01/17 17:40 03/01/17 20:27 03/02/17 08:24 03/02/17 11:33 Glucose (Fingerstick) 105mg/dL (70-99) 150mg/dL (70-99) 101mg/dL (70-99) 106mg/dL (70-99) PE: GEN: NAD LUNGS: CTAB HEART: RRR ABD: NABS, S/ND/NT NEURO/PSYCH: A & O 3 A/P: Ileus - resolved Constipation - controlled -- Add probiotics. ?low dose fiber FERN CONCEPCION Mar 02, 2017 13:26
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
[2017-03-02] MEDS: VANCOMYCIN PER PHARMACY MC PRN (15:57)
[2017-03-02] MEDS: ATORVASTATIN CALCIUM 20 MG TABLET PO SCH (21:18)
[2017-03-03 03:24] VITALS: BP 137/78
[2017-03-03] MEDS: PIPERACILLIN/TAZOBACTAM 3.375 GM in IV NORMAL SALINE 50ML 50 ML IV SCH ×2 (05:45→11:45)
[2017-03-03] MEDS: IPRATRPIUM/ALBUTEROL 0.5/2.5MG 3 ML NEBU. NEB SCH ×3 (06:20→15:53)
[2017-03-03 07:40] VITALS: BP 112/76
[2017-03-03] MEDS: INSULIN ASPART 300 UNITS/3 ML INSULN.PEN SQ SCH ×2 (08:00→11:48)
[2017-03-03] MEDS: VITAMIN E 200 UNIT CAPSULE. PO SCH (08:43)
[2017-03-03] MEDS: CYANOCOBALAMIN (VITAMIN B-12) 1,000 MCG TABLET. PO SCH (08:43)
[2017-03-03] MEDS: ASPIRIN CHEWABLE 81 MG TABLET. PO SCH (08:43)
[2017-03-03] MEDS: METFORMIN 500 MG TABLET. PO SCH (08:43)
[2017-03-03] MEDS: ASCORBIC ACID 500 MG TABLET PO SCH (08:43)
[2017-03-03] MEDS: CHOLECALCIFEROL (VITAMIN D3) 1,000 UNIT TABLET PO SCH (08:43)
[2017-03-03] MEDS: FLUCONAZOLE 100 MG TABLET. PO SCH (08:43)
[2017-03-03] MEDS: FENOFIBRATE,MICRONIZED 134 MG CAPSULE PO SCH (08:43)
[2017-03-03] MEDS: ENOXAPARIN 40 MG/0.4 ML SYRINGE. SQ SCH (08:44)
[2017-03-03] MEDS: VANCOMYCIN 1.25 GM in IV NORMAL SALINE 250ML 250 ML IV SCH (08:45)
--- NOTE | 2017-03-03 09:35 | PDOC ---
Subjective: Subjective: No GI complaints. Yesterday was concerned w/ increased frequency of stools, this has slowed. Objective: Vital Signs: Vital Signs Date Time Temp Pulse Resp B/P Pulse Ox O2 Delivery O2 Flow Rate FiO2 03/03/17 07:40 97.7 90 20 112/76 91 Room Air 97.7 Labs: Laboratory Tests Test 03/02/17 11:33 03/02/17 17:10 03/02/17 21:07 03/03/17 07:06 Glucose (Fingerstick) 106mg/dL (70-99) 138mg/dL (70-99) 168mg/dL (70-99) 107mg/dL (70-99) PE: GEN: NAD, eating meza LUNGS: CTAB HEART: RRR ABD: NABS, S/ND/NT NEURO/PSYCH: A & O 3 A/P: Constipation - controlled -no previous colonoscopy, consider screening as outpt -- Continue same per GI, await DC. FERN CONCEPCION Mar 03, 2017 09:35
[2017-03-03] MEDS: VANCOMYCIN PER PHARMACY MC PRN (10:07)
[2017-03-03 11:15] VITALS: BP 93/50
[2017-03-03] MEDS ORDERED: LACTOBACILLUS ACIDOPH & BULGAR 1 TABLET. PO SCH (12:00)
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
[2017-03-03 15:00] VITALS: BP 126/80
[2017-03-03 16:15] VITALS: BP 126/80
[2017-03-04] MEDS ORDERED: VANCOMYCIN 750 MG in IV NORMAL SALINE 250ML 250 ML IV SCH (09:00)
== END 2017-03-03 17:15 | disposition home health service (06) | DRG 477 ==
LOC: ER 20:40 → 6 SOUTH 02-22 00:21
PROVIDERS: ADMIT Internal Medicine; ATTEND Internal Medicine
PROC: 0QB70ZZ Excision of Left Upper Femur, Open Approach (ICD-10-PCS; 2017-02-23)
PROC: 0S9B0ZZ Drainage of Left Hip Joint, Open Approach (ICD-10-PCS; 2017-02-23)
PROC: 0QB70ZX Excision of Left Upper Femur, Open Approach, Diagnostic (ICD-10-PCS; principal; 2017-02-23 16:00)
DX: M86.9 Osteomyelitis, unspecified (principal); G82.50 Quadriplegia, unspecified; N39.0 Urinary tract infection, site not specified; E44.1 Mild protein-calorie malnutrition; R65.10 Systemic inflammatory response syndrome (SIRS) of non-infectious origin without acute organ dysfunction; K56.60 Unspecified intestinal obstruction; K56.7 Ileus, unspecified; E16.2 Hypoglycemia, unspecified; E78.00 Pure hypercholesterolemia, unspecified; E78.5 Hyperlipidemia, unspecified; F17.200 Nicotine dependence, unspecified, uncomplicated; F41.0 Panic disorder [episodic paroxysmal anxiety]; I95.81 Postprocedural hypotension; M70.60 Trochanteric bursitis, unspecified hip; Z88.8 Allergy status to other drugs, medicaments and biological substances; Z68.23 Body mass index [BMI] 23.0-23.9, adult; V89.2XXS Person injured in unspecified motor-vehicle accident, traffic, sequela; Z87.440 Personal history of urinary (tract) infections; Z99.3 Dependence on wheelchair
CPT/HCPCS: 36415; 71010; 73620; 73723; 74000; 74177; 80048; 80053; 80202; 81001; 82947; 83605; 84484; 85027; 85379; 85651; 87040; 87071; 87075; 87086; 87205; 88304; 88311; 93970; 94250; 94640; 94760; 96365; 96375; A9585; J1650; J1815; J2543; J2997; J3370; J3490; J7030; J7040; J7050; J7620; Q9967; 97110; 97530; 97535; 97605; 99285-25

== ENCOUNTER → 2017-03-13 | Outpatient (CLI) | payer MEDICARE, OTHER ==
[2017-03-03 15:00] VITALS: BP 126/80
[~2017-03-13] MED LIST: ASCO500C PO; CHOL10007 PO; CYAN10005 PO; FENO160T PO; METF500T4 PO; PRAV80TA2 PO; SILV400C TP; SULF1TAB3 PO; VITA400C36 PO
== END | disposition home or self-care (01) ==
LOC: PMGWOUND 10:41
PROVIDERS: ATTEND Emergency Medicine Undersea and Hyperbaric Medicine
DX: E11.621 Type 2 diabetes mellitus with foot ulcer (principal); L97.511 Non-pressure chronic ulcer of other part of right foot limited to breakdown of skin; L89.213 Pressure ulcer of right hip, stage 3; L89.224 Pressure ulcer of left hip, stage 4; G82.20 Paraplegia, unspecified; E78.5 Hyperlipidemia, unspecified; E11.69 Type 2 diabetes mellitus with other specified complication; M86.68 Other chronic osteomyelitis, other site; E78.00 Pure hypercholesterolemia, unspecified; Z87.891 Personal history of nicotine dependence; Z68.23 Body mass index [BMI] 23.0-23.9, adult
CPT/HCPCS: 11042; 97605

== ENCOUNTER → 2017-03-20 | Outpatient (CLI) | payer MEDICARE, OTHER ==
[2017-03-03 15:00] VITALS: BP 126/80
== END | disposition home or self-care (01) ==
LOC: PMGWOUND 10:16
PROVIDERS: ATTEND Emergency Medicine Undersea and Hyperbaric Medicine
DX: T23.222A Burn of second degree of single left finger (nail) except thumb, initial encounter (principal); L89.213 Pressure ulcer of right hip, stage 3; L89.224 Pressure ulcer of left hip, stage 4; E11.621 Type 2 diabetes mellitus with foot ulcer; L97.511 Non-pressure chronic ulcer of other part of right foot limited to breakdown of skin; G82.20 Paraplegia, unspecified; Z87.891 Personal history of nicotine dependence; X08.8XXA Exposure to other specified smoke, fire and flames, initial encounter; Y93.89 Activity, other specified; Y92.89 Other specified places as the place of occurrence of the external cause; Y99.8 Other external cause status
CPT/HCPCS: 11042; 97605

== ENCOUNTER → 2017-03-27 | Outpatient (CLI) | payer MEDICARE, OTHER ==
[2017-03-03 15:00] VITALS: BP 126/80
== END | disposition home or self-care (01) ==
LOC: PMGWOUND 10:35
PROVIDERS: ATTEND Emergency Medicine Undersea and Hyperbaric Medicine
DX: T23.222D Burn of second degree of single left finger (nail) except thumb, subsequent encounter (principal); T31.0 Burns involving less than 10% of body surface; E11.621 Type 2 diabetes mellitus with foot ulcer; L97.511 Non-pressure chronic ulcer of other part of right foot limited to breakdown of skin; L89.213 Pressure ulcer of right hip, stage 3; L89.224 Pressure ulcer of left hip, stage 4; G82.20 Paraplegia, unspecified; E78.5 Hyperlipidemia, unspecified; E11.69 Type 2 diabetes mellitus with other specified complication; M86.68 Other chronic osteomyelitis, other site; E78.00 Pure hypercholesterolemia, unspecified; Z68.23 Body mass index [BMI] 23.0-23.9, adult; Z87.891 Personal history of nicotine dependence; X08.8XXD Exposure to other specified smoke, fire and flames, subsequent encounter
CPT/HCPCS: 17250; 97597

== ENCOUNTER → 2017-03-27 | Outpatient (CLI) | payer MEDICARE, OTHER ==
[2017-03-03 15:00] VITALS: BP 126/80
[2017-03-27 12:20] LABS: BASO % 0 % (0-3); EOS % 5 % (0-3); HEMATOCRIT 28.3 % (39.0-53.0); HEMOGLOBIN 9.4 g/dL (13.0-17.5); LYMPH # 0.9 x10^3/uL (1.0-4.8); LYMPH % 30 % (24-48); MEAN CORPUSCULAR HEMOGLOBIN 29 pg (25-35); MEAN CORPUSCULAR HGB CONC 33 g/dL (31-37); MEAN CORPUSCULAR VOLUME 89 fL (79-100); MONO % 18 % (0-9); NEUT % 46 % (31-73); PLATELET COUNT 175 x10^3/uL (140-400); RED CELL DISTRIBUTION WIDTH 14.6 % (11.5-14.5)
[2017-03-27 12:33] LABS: ALBUMIN 3.3 g/dL (3.4-5.0); ALBUMIN/GLOBULIN RATIO 0.9 (1.0-1.7); BLOOD UREA NITROGEN 12 mg/dL (8-26); BUN/CREATININE RATIO 13 (6-20); CALCIUM 8.8 mg/dL (8.5-10.1); CREATININE 0.9 mg/dL (0.7-1.3); GFR 86.7; GLUCOSE 87 mg/dL (70-99)
[2017-03-27 12:34] LABS: ALK PHOS 49 U/L (46-116); ALT (SGPT) 16 U/L (16-63); ANION GAP 12 (6-14); AST (SGOT) 21 U/L (15-37); CARBON DIOXIDE 27 mmol/L (21-32); CHLORIDE 102 mmol/L (98-107); POTASSIUM 3.6 mmol/L (3.5-5.1); SODIUM 141 mmol/L (136-145); TOTAL BILIRUBIN 0.4 mg/dL (0.2-1.0)
[2017-03-27 12:36] LABS: TOTAL PROTEIN 7.1 g/dL (6.4-8.2)
[2017-03-27 17:49] LABS: % EOS 1 % (0-5)
[2017-03-27 17:52] LABS: OVALOCYTES OCC; PLT ESTIMATE ADEQUATE (ADEQUATE); POLYCHROMASIA SLIGHT; TARGET CELLS OCC
== END | disposition home or self-care (01) ==
LOC: LAB 11:39
PROVIDERS: ATTEND Internal Medicine Infectious Disease
DX: S71.002A Unspecified open wound, left hip, initial encounter (principal); X58.XXXA Exposure to other specified factors, initial encounter; Y93.89 Activity, other specified; Y92.89 Other specified places as the place of occurrence of the external cause; Y99.8 Other external cause status
CPT/HCPCS: 36415; 80053; 80202; 85007; 85027; 85651

== ENCOUNTER → 2017-04-10 | Outpatient (CLI) | payer MEDICARE, OTHER ==
[2017-04-10 12:37] LABS: BASO % 1 % (0-3); EOS % 6 % (0-3); HEMATOCRIT 29.5 % (39.0-53.0); HEMOGLOBIN 9.9 g/dL (13.0-17.5); LYMPH # 1.1 x10^3/uL (1.0-4.8); LYMPH % 33 % (24-48); MEAN CORPUSCULAR HEMOGLOBIN 30 pg (25-35); MEAN CORPUSCULAR HGB CONC 34 g/dL (31-37); MEAN CORPUSCULAR VOLUME 88 fL (79-100); MONO % 15 % (0-9); NEUT % 46 % (31-73); PLATELET COUNT 178 x10^3/uL (140-400); RED BLOOD COUNT 3.35 x10^6/uL (4.30-5.70); WHITE BLOOD COUNT 3.3 x10^3/uL (4.0-11.0)
[2017-04-10 12:49] LABS: CALCIUM 9.4 mg/dL (8.5-10.1); CREATININE 1.3 mg/dL (0.7-1.3); GFR 56.7; POTASSIUM 4.7 mmol/L (3.5-5.1)
== END | disposition home or self-care (01) ==
LOC: LAB 12:18
PROVIDERS: ATTEND Internal Medicine Infectious Disease
DX: M86.9 Osteomyelitis, unspecified (principal)
CPT/HCPCS: 36415; 80048; 85027

== ENCOUNTER → 2017-04-10 | Outpatient (CLI) | payer MEDICARE, OTHER | END | disposition home or self-care (01) | LOC: PMGWOUND 10:35 | PROVIDERS: ATTEND Emergency Medicine Undersea and Hyperbaric Medicine | DX: E11.621 Type 2 diabetes mellitus with foot ulcer (principal); L97.512 Non-pressure chronic ulcer of other part of right foot with fat layer exposed; L89.214 Pressure ulcer of right hip, stage 4; E78.5 Hyperlipidemia, unspecified; E78.00 Pure hypercholesterolemia, unspecified; E11.69 Type 2 diabetes mellitus with other specified complication; M86.68 Other chronic osteomyelitis, other site; G82.20 Paraplegia, unspecified; Z87.891 Personal history of nicotine dependence | CPT/HCPCS: 97605 ==

== ENCOUNTER → 2017-04-17 | Outpatient (CLI) | payer MEDICARE, OTHER ==
[~2017-04-17] MED LIST changes: +CHOL100014 PO; -CHOL10007 PO; +SULF-143 PO; -SULF1TAB3 PO
== END | disposition home or self-care (01) ==
LOC: PMGWOUND 09:19
PROVIDERS: ATTEND Emergency Medicine Undersea and Hyperbaric Medicine
DX: E11.621 Type 2 diabetes mellitus with foot ulcer (principal); L97.512 Non-pressure chronic ulcer of other part of right foot with fat layer exposed; T23.222D Burn of second degree of single left finger (nail) except thumb, subsequent encounter; L89.213 Pressure ulcer of right hip, stage 3; L89.224 Pressure ulcer of left hip, stage 4; Z87.891 Personal history of nicotine dependence; X08.8XXD Exposure to other specified smoke, fire and flames, subsequent encounter
CPT/HCPCS: 17250; 97605

== ENCOUNTER → 2017-04-24 | Outpatient (CLI) | payer MEDICARE, OTHER | END | disposition home or self-care (01) | LOC: PMGWOUND 09:44 | PROVIDERS: ATTEND Emergency Medicine Undersea and Hyperbaric Medicine | DX: E11.621 Type 2 diabetes mellitus with foot ulcer (principal); L97.512 Non-pressure chronic ulcer of other part of right foot with fat layer exposed; L89.214 Pressure ulcer of right hip, stage 4; E78.5 Hyperlipidemia, unspecified; E78.00 Pure hypercholesterolemia, unspecified; E11.69 Type 2 diabetes mellitus with other specified complication; M86.68 Other chronic osteomyelitis, other site; G82.20 Paraplegia, unspecified; Z87.891 Personal history of nicotine dependence | CPT/HCPCS: 11042; 97597 ==

== ENCOUNTER → 2017-05-01 | Outpatient (CLI) | payer MEDICARE, OTHER | END | disposition home or self-care (01) | LOC: PMGWOUND 09:25 | PROVIDERS: ATTEND Emergency Medicine Undersea and Hyperbaric Medicine | DX: E11.621 Type 2 diabetes mellitus with foot ulcer (principal); L97.512 Non-pressure chronic ulcer of other part of right foot with fat layer exposed; L89.213 Pressure ulcer of right hip, stage 3; L89.224 Pressure ulcer of left hip, stage 4; E78.5 Hyperlipidemia, unspecified; E78.00 Pure hypercholesterolemia, unspecified; E11.69 Type 2 diabetes mellitus with other specified complication; M86.68 Other chronic osteomyelitis, other site; G82.20 Paraplegia, unspecified; Z87.891 Personal history of nicotine dependence | CPT/HCPCS: 11042; 97605 ==

== ENCOUNTER → 2017-05-15 | Outpatient (CLI) | payer MEDICARE, OTHER | END | disposition home or self-care (01) | LOC: PMGWOUND 09:33 | PROVIDERS: ATTEND Emergency Medicine Undersea and Hyperbaric Medicine | DX: E11.621 Type 2 diabetes mellitus with foot ulcer (principal); L97.512 Non-pressure chronic ulcer of other part of right foot with fat layer exposed; L89.213 Pressure ulcer of right hip, stage 3; L89.224 Pressure ulcer of left hip, stage 4; T23.222D Burn of second degree of single left finger (nail) except thumb, subsequent encounter; E78.5 Hyperlipidemia, unspecified; G82.20 Paraplegia, unspecified; E11.69 Type 2 diabetes mellitus with other specified complication; M86.68 Other chronic osteomyelitis, other site; E78.00 Pure hypercholesterolemia, unspecified; Z87.891 Personal history of nicotine dependence; X08.8XXD Exposure to other specified smoke, fire and flames, subsequent encounter | CPT/HCPCS: 97597; 97605 ==

== ENCOUNTER → 2017-05-22 | Outpatient (CLI) | payer MEDICARE, OTHER ==
[~2017-05-22] MED LIST changes: +GADOBUTROL 7.5 MMOL/7.5 ML VIAL IV ONE
--- NOTE | 2017-05-22 13:49 | RAD ---
MR of the right hip HISTORY: Nonhealing ulcer at the lateral right hip. History of debridement and femoral erma placement. COMPARISON: None TECHNIQUE: Routine multiplanar noncontrast images were obtained. FINDINGS: Note there is some metal artifact obscuring the [id number] due to right femoral nail. There is soft tissue edema signal as well as fatty signal induration lateral to the hip and greater trochanter. No evidence of an organized fluid collection or abscess. No evidence of aggressive bone destruction to suggest acute osteomyelitis. No evidence of acute fracture. There is trace right hip joint fluid of uncertain sterility. Limited labral evaluation demonstrates degenerative tearing of the superior labrum. There is primary osteoarthritis of the right hip. Generalized muscle atrophy with fatty infiltration. Mild generalized intramuscular edema. IMPRESSION: 1. Soft tissue edema and fat injury effusion lateral to the right hip, compatible with soft tissue infection, scarring or surgical intervention. 2. No evidence of an organized abscess or acute osteomyelitis. 3. Trace right hip joint fluid of uncertain sterility. Electronically signed by: Elliott Armendariz MD (05/22/2017 1:46 PM) [facility]
--- NOTE | 2017-05-22 14:13 | RAD ---
MR of the left hip with and without contrast COMPARISON: February 22, 2017 HISTORY: Nonhealing ulcer at the lateral left hip. History of debridement. FINDINGS: Skin wound or ulcer lateral to the left greater trochanter is again identified. This extends to the cortical surface of the greater trochanter. Bone marrow edema and enhancement, with loss of fatty marrow signal is again identified within the greater trochanter, compatible with osteomyelitis. This does not appear to have progressed substantially since the prior exam. There is some linear nonenhancing signal along the surface of the greater trochanter and communicating with ulcer or sinus tract, similar to the prior study. No drainable fluid collection or abscess. There is diffuse soft tissue and intramuscular edema and enhancement around the left hip, also seen previously. No significant hip joint effusion. There does appear to be a degenerative tear of the labrum. The left gluteus minimus tendon is poorly seen, could be torn or due to destruction. IMPRESSION: 1. Findings are again compatible with osteomyelitis of the greater trochanter. No gross progression in extent since the prior study. 2. No evidence of a drainable abscess. 3. Ulcer or sinus tract extends to the cortical surface of the greater trochanter 4. Poorly visualized left gluteus minimus tendon. Electronically signed by: Elliott Armendariz MD (05/22/2017 2:09 PM) [facility]
== END | disposition home or self-care (01) ==
LOC: PMGWOUND 09:36
PROVIDERS: ATTEND Emergency Medicine Undersea and Hyperbaric Medicine
DX: E11.621 Type 2 diabetes mellitus with foot ulcer (principal); L97.512 Non-pressure chronic ulcer of other part of right foot with fat layer exposed; E11.622 Type 2 diabetes mellitus with other skin ulcer; L89.213 Pressure ulcer of right hip, stage 3; L89.224 Pressure ulcer of left hip, stage 4; E78.5 Hyperlipidemia, unspecified; M86.68 Other chronic osteomyelitis, other site; G82.20 Paraplegia, unspecified; E78.00 Pure hypercholesterolemia, unspecified; Z87.891 Personal history of nicotine dependence
CPT/HCPCS: 73723; 97597; 97605; A9585

== ENCOUNTER → 2017-05-29 | Outpatient (CLI) | payer MEDICARE, OTHER ==
[~2017-05-29] MED LIST changes: -GADOBUTROL 7.5 MMOL/7.5 ML VIAL IV ONE
== END | disposition home or self-care (01) ==
LOC: PMGWOUND 09:14
PROVIDERS: ATTEND Emergency Medicine Undersea and Hyperbaric Medicine
DX: E11.622 Type 2 diabetes mellitus with other skin ulcer (principal); L89.214 Pressure ulcer of right hip, stage 4; L89.224 Pressure ulcer of left hip, stage 4; L98.491 Non-pressure chronic ulcer of skin of other sites limited to breakdown of skin; S30.810D Abrasion of lower back and pelvis, subsequent encounter; E78.5 Hyperlipidemia, unspecified; M86.68 Other chronic osteomyelitis, other site; G82.20 Paraplegia, unspecified; E78.00 Pure hypercholesterolemia, unspecified; E11.69 Type 2 diabetes mellitus with other specified complication; Z87.891 Personal history of nicotine dependence; X58.XXXD Exposure to other specified factors, subsequent encounter
CPT/HCPCS: 97605

== ENCOUNTER → 2017-06-05 | Outpatient (CLI) | payer MEDICARE, OTHER | END | disposition home or self-care (01) | LOC: PMGWOUND 09:18 | PROVIDERS: ATTEND Emergency Medicine Undersea and Hyperbaric Medicine | DX: E11.622 Type 2 diabetes mellitus with other skin ulcer (principal); L98.491 Non-pressure chronic ulcer of skin of other sites limited to breakdown of skin; L89.224 Pressure ulcer of left hip, stage 4; L89.213 Pressure ulcer of right hip, stage 3; L89.153 Pressure ulcer of sacral region, stage 3; S30.810D Abrasion of lower back and pelvis, subsequent encounter; E78.5 Hyperlipidemia, unspecified; G82.20 Paraplegia, unspecified; E78.00 Pure hypercholesterolemia, unspecified; E11.69 Type 2 diabetes mellitus with other specified complication; M86.68 Other chronic osteomyelitis, other site; M86.9 Osteomyelitis, unspecified; Z87.891 Personal history of nicotine dependence; X58.XXXD Exposure to other specified factors, subsequent encounter | CPT/HCPCS: 97597; 97605 ==

== ENCOUNTER → 2017-06-12 | Outpatient (CLI) | payer MEDICARE, OTHER | END | disposition home or self-care (01) | LOC: PMGWOUND 09:20 | PROVIDERS: ATTEND Emergency Medicine Undersea and Hyperbaric Medicine | DX: E11.622 Type 2 diabetes mellitus with other skin ulcer (principal); L89.224 Pressure ulcer of left hip, stage 4; L89.213 Pressure ulcer of right hip, stage 3; E78.5 Hyperlipidemia, unspecified; G82.20 Paraplegia, unspecified; E78.00 Pure hypercholesterolemia, unspecified; E11.69 Type 2 diabetes mellitus with other specified complication; M86.68 Other chronic osteomyelitis, other site; Z87.891 Personal history of nicotine dependence | CPT/HCPCS: 97605 ==

== ENCOUNTER → 2017-06-14 | Outpatient (CLI) | payer MEDICARE, OTHER | END | disposition home or self-care (01) | LOC: PMGWOUND 09:47 | PROVIDERS: ATTEND Preventive Medicine Undersea and Hyperbaric Medicine | DX: E11.622 Type 2 diabetes mellitus with other skin ulcer (principal); L98.491 Non-pressure chronic ulcer of skin of other sites limited to breakdown of skin; L89.224 Pressure ulcer of left hip, stage 4; L89.213 Pressure ulcer of right hip, stage 3; E78.5 Hyperlipidemia, unspecified; E11.69 Type 2 diabetes mellitus with other specified complication; M86.68 Other chronic osteomyelitis, other site; E78.00 Pure hypercholesterolemia, unspecified; Z87.891 Personal history of nicotine dependence | CPT/HCPCS: 97605 ==

== ENCOUNTER → 2017-06-16 | Outpatient (CLI) | payer MEDICARE, OTHER | END | disposition home or self-care (01) | LOC: PMGWOUND 09:34 | PROVIDERS: ATTEND Preventive Medicine Undersea and Hyperbaric Medicine | DX: E11.621 Type 2 diabetes mellitus with foot ulcer (principal); L98.491 Non-pressure chronic ulcer of skin of other sites limited to breakdown of skin; L89.224 Pressure ulcer of left hip, stage 4; L89.213 Pressure ulcer of right hip, stage 3; G82.20 Paraplegia, unspecified; Z87.891 Personal history of nicotine dependence | CPT/HCPCS: 97605 ==

== ENCOUNTER → 2017-06-19 | Outpatient (CLI) | payer MEDICARE, OTHER | END | disposition home or self-care (01) | LOC: PMGWOUND 09:02 | PROVIDERS: ATTEND Emergency Medicine Undersea and Hyperbaric Medicine | DX: L89.224 Pressure ulcer of left hip, stage 4 (principal); L89.213 Pressure ulcer of right hip, stage 3; M86.68 Other chronic osteomyelitis, other site; E78.5 Hyperlipidemia, unspecified; G82.20 Paraplegia, unspecified; Z87.891 Personal history of nicotine dependence | CPT/HCPCS: 97605 ==

== ENCOUNTER → 2017-06-26 | Outpatient (CLI) | payer MEDICARE, OTHER | END | disposition home or self-care (01) | LOC: PMGWOUND 10:01 | PROVIDERS: ATTEND Emergency Medicine Undersea and Hyperbaric Medicine | DX: E11.622 Type 2 diabetes mellitus with other skin ulcer (principal); L98.491 Non-pressure chronic ulcer of skin of other sites limited to breakdown of skin; L89.213 Pressure ulcer of right hip, stage 3; L89.224 Pressure ulcer of left hip, stage 4; E78.5 Hyperlipidemia, unspecified; E11.69 Type 2 diabetes mellitus with other specified complication; M86.68 Other chronic osteomyelitis, other site; Z87.891 Personal history of nicotine dependence | CPT/HCPCS: 99213 ==

== ENCOUNTER → 2017-06-28 | Outpatient (CLI) | payer MEDICARE, OTHER | END | disposition home or self-care (01) | LOC: PMGWOUND 10:05 | PROVIDERS: ATTEND Preventive Medicine Undersea and Hyperbaric Medicine | DX: E11.622 Type 2 diabetes mellitus with other skin ulcer (principal); L89.224 Pressure ulcer of left hip, stage 4; L89.213 Pressure ulcer of right hip, stage 3; E11.69 Type 2 diabetes mellitus with other specified complication; M86.68 Other chronic osteomyelitis, other site; G82.20 Paraplegia, unspecified; E78.5 Hyperlipidemia, unspecified; Z87.891 Personal history of nicotine dependence | CPT/HCPCS: 97605 ==

== ENCOUNTER → 2017-06-30 | Outpatient (CLI) | payer MEDICARE, OTHER | END | disposition home or self-care (01) | LOC: PMGWOUND 09:22 | PROVIDERS: ATTEND Preventive Medicine Undersea and Hyperbaric Medicine | DX: E11.622 Type 2 diabetes mellitus with other skin ulcer (principal); L98.491 Non-pressure chronic ulcer of skin of other sites limited to breakdown of skin; L89.213 Pressure ulcer of right hip, stage 3; L89.224 Pressure ulcer of left hip, stage 4; Z87.891 Personal history of nicotine dependence; E78.5 Hyperlipidemia, unspecified; E11.69 Type 2 diabetes mellitus with other specified complication; M86.68 Other chronic osteomyelitis, other site; E78.00 Pure hypercholesterolemia, unspecified | CPT/HCPCS: 97605 ==

== ENCOUNTER → 2017-07-03 | Outpatient (CLI) | payer MEDICARE, OTHER | END | disposition home or self-care (01) | LOC: PCVCWOUND 09:33 | PROVIDERS: ATTEND Emergency Medicine Undersea and Hyperbaric Medicine | DX: E11.622 Type 2 diabetes mellitus with other skin ulcer (principal); L98.491 Non-pressure chronic ulcer of skin of other sites limited to breakdown of skin; L89.214 Pressure ulcer of right hip, stage 4; E11.69 Type 2 diabetes mellitus with other specified complication; M86.68 Other chronic osteomyelitis, other site; E78.5 Hyperlipidemia, unspecified; G82.20 Paraplegia, unspecified; Z87.891 Personal history of nicotine dependence | CPT/HCPCS: 97605 ==

== ENCOUNTER → 2017-07-05 | Outpatient (CLI) | payer MEDICARE, OTHER | END | disposition home or self-care (01) | LOC: PMGWOUND 11:31 | PROVIDERS: ATTEND Preventive Medicine Undersea and Hyperbaric Medicine | DX: E11.622 Type 2 diabetes mellitus with other skin ulcer (principal); L98.491 Non-pressure chronic ulcer of skin of other sites limited to breakdown of skin; L89.224 Pressure ulcer of left hip, stage 4; L89.213 Pressure ulcer of right hip, stage 3; E78.5 Hyperlipidemia, unspecified; E11.69 Type 2 diabetes mellitus with other specified complication; M86.68 Other chronic osteomyelitis, other site; G82.20 Paraplegia, unspecified; Z87.891 Personal history of nicotine dependence | CPT/HCPCS: 97605 ==

== ENCOUNTER → 2017-07-07 | Outpatient (CLI) | payer MEDICARE, OTHER | END | disposition home or self-care (01) | LOC: PMGWOUND 09:35 | PROVIDERS: ATTEND Preventive Medicine Undersea and Hyperbaric Medicine | DX: E11.622 Type 2 diabetes mellitus with other skin ulcer (principal); L98.491 Non-pressure chronic ulcer of skin of other sites limited to breakdown of skin; L89.224 Pressure ulcer of left hip, stage 4; L89.213 Pressure ulcer of right hip, stage 3; G82.20 Paraplegia, unspecified; Z87.891 Personal history of nicotine dependence; E11.69 Type 2 diabetes mellitus with other specified complication; M86.68 Other chronic osteomyelitis, other site; E78.00 Pure hypercholesterolemia, unspecified | CPT/HCPCS: 99214 ==

== ENCOUNTER → 2022-03-19 | Outpatient (CLI) | payer MEDICARE, MEDICAID ==
[~2022-03-19] MED LIST changes: +CYAN-25 PO; -CYAN10005 PO; +METF500T16 PO; -METF500T4 PO; +VITA-8 PO; -VITA400C36 PO
--- NOTE | 2022-03-19 08:48 | RAD ---
Abdominal and Pelvis CT, Without Contrast: History: Reason: PROGRESSIVE ABDOMINAL DISTENSION / Spl. Instructions: / History: Comparison: There is a report from the February 22, 2017 CT available for comparison. Procedure: Axial images are obtained of the abdomen and pelvis, without IV or oral contrast. Oral Contrast: No Findings: Evaluation of solid organs is limited without contrast. 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 There is mild distention of the colon with air and stool. The sigmoid colon is narrowed. Prior repair of a hip fracture on the right and there is atrophy of the muscles in the abdomen and pe lvis and there is granulation tissue posterior lateral to the left hip. There is linear opacities in the lung bases. Liver: Normal. Spleen: Normal. Pancreas: Normal. Adrenal Glands: Normal. Kidneys: Normal. There is no free air or free fluid. There is no lymphadenopathy. The urinary bladder is collapsed around a suprapubic catheter. There are 2 large stones in the urinar y bladder.. There is no pericolonic inflammation identified. Impression: 1. 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 2. There is narrowing of the sigmoid colon of more proximal colon is distended with air and stool sug gesting mild obstructive changes. This could be ileus however intermittent sigmoid volvulus or strict ure is possible. 3. Basilar infiltrates likely due to subsegmental atelectasis or scar. 4. Granulation tissue around the left hip likely due to old decubitus ulcer. End impression PQRS Compliance Statement: One or more of the following individualized dose reduction techniques were utilized for this examinat ion: 1. Automated exposure control 2. Adjustment of the mA and/or kV according to patient size 3. Use of iterative reconstruction technique Electronically signed by: Jose Carlos Lin III, MD (03/19/2022 8:45 AM) [facility]
== END ==
LOC: CT 08:15
PROVIDERS: ATTEND Internal Medicine
DX: N21.0 Calculus in bladder (principal); K63.89 Other specified diseases of intestine; M62.50 Muscle wasting and atrophy, not elsewhere classified, unspecified site; L92.9 Granulomatous disorder of the skin and subcutaneous tissue, unspecified
CPT/HCPCS: 74176